=== PATIENT | female | born 1935 | race Caucasian/White ===

== ENCOUNTER 2016-08-06 11:19 | Observation (INO) | payer MEDICARE ==
--- NOTE | 2016-08-06 11:38 | C.PDOC ---
History Of Present Illness 81 y/o female presents to the ED s/p fall. Pt was at home, tripped and fell and hit the back of her head causing laceration; denies LOC. Per daughter, patient had syncopal episode earlier this morning before breakfast and "has dizzy spells on a daily basis," she has passed out several times in the past and has had "a lot of testing" for this problem. Pt now complaining of pain to back of her head. Denies neck pain, chest pain, SOB, abdominal pain, vomiting or any other complaints. Time Seen by Provider: 08/06/16 11:32 Chief Complaint (Nursing): Syncope History Per: Patient History/Exam Limitations: no limitations Onset/Duration Of Symptoms: Mins Current Symptoms Are (Timing): Still Present Fall Associated With With Symptoms: Yes, Positive Injury Severity: Moderate Recent travel outside of the [place]: No Additional History Per: Family Past Medical History Reviewed: Historical Data, Nursing Documentation, Vital Signs Vital Signs: Last Vital Signs Temp 97.1 F L 08/09/16 15:00 Pulse 86 08/09/16 15:00 Resp 20 08/09/16 15:00 BP 112/69 08/09/16 15:00 Pulse Ox 97 08/09/16 15:00 Family History: States: Unknown Family Hx Review Of Systems Except As Marked, All Systems Reviewed And Found Negative. Cardiovascular: Negative for: Chest Pain Respiratory: Negative for: Shortness of Breath Gastrointestinal: Negative for: Vomiting, Abdominal Pain Musculoskeletal: Negative for: Neck Pain Skin: Positive for: Other (laceration to posterior scalp) Physical Exam - Physical Exam Appears: Non-toxic, No Acute Distress Skin: Warm, Dry, No Rash Head: Normacephalic, Laceration (6 cm laceration to posterior scalp) Neck: Normal, Normal ROM, No Midline Cervical Tenderness, No Paracervical Tenderness, Supple Chest: Symmetrical, No Tenderness Cardiovascular: Rhythm Regular Respiratory: Normal Breath Sounds, No Rales, No Rhonchi, No Wheezing Gastrointestinal/Abdominal: Normal Exam, Soft, No Tenderness Back: Normal Inspection, No Vertebral Tenderness Pelvic: Other (nelson catheter in place) Extremity: Bilateral: Atraumatic Neurological/Psych: Normal Motor, Normal Sensation ED Course And Treatment - Laboratory Results Result Diagrams: 08/09/16 08:12 08/09/16 08:12 ECG: Interpreted By Me, Viewed By Me ECG Rhythm: Sinus Rhythm Interpretation Of ECG: right axis deviation, incomplete right bundle branch block Rate From EC O2 Sat by Pulse Oximetry: 98 (room air) Pulse Ox Interpretation: Normal Disposition - Disposition Disposition: HOSPITALIZED Disposition Time: 14:55 Condition: STABLE - Clinical Impression Clinical Impression: Scalp laceration, Syncope, Hyponatremia - Scribe Statement The provider has reviewed the documentation as recorded by the Scribe Augustin Bañuelos Provider Attestation: All medical record entries made by the Adamibe were at my direction and personally dictated by me. I have reviewed the chart and agree that the record accurately reflects my personal performance of the history, physical exam, medical decision making, and the department course for this patient. I have also personally directed, reviewed, and agree with the discharge instructions and disposition.
--- NOTE | 2016-08-06 12:33 | CT ---
PROCEDURE: CT HEAD WITHOUT CONTRAST. HISTORY: fall head injury COMPARISON: Noncontrast head CT performed 08/29/14 TECHNIQUE: Axial computed tomography images were obtained through the head/brain without intravenous contrast. Radiation dose: Total exam DLP = 930.15 mGy-cm. This CT exam was performed using one or more of the following dose reduction techniques: Automated exposure control, adjustment of the mA and/or kV according to patient size, and/or use of iterative reconstruction technique. FINDINGS: HEMORRHAGE: No intracranial hemorrhage. BRAIN: Diffuse atrophy with prominence of the ventricles and sulci noted. No mass effect or edema. Intracranial atherosclerosis. Scattered periventricular and subcortical white matter hypodensities, which are nonspecific, but often seen with chronic microvascular ischemic disease. Please note that MRI with diffusion imaging is more sensitive in the detection of acute ischemic event. VENTRICLES: No hydrocephalus. CALVARIUM: Unremarkable. PARANASAL SINUSES: Unremarkable as visualized. No significant inflammatory changes. MASTOID AIR CELLS: Unremarkable as visualized. No inflammatory changes. OTHER FINDINGS: Partial opacification bilateral external auditory canals, likely cerumen. IMPRESSION: Nonspecific white matter changes.
[2016-08-06 13:23] LABS: BASO % 0.3 % (0.0-2.0); EOS # 0.1 K/uL (0.0-0.7); HEMATOCRIT 34.7 % (34.0-47.0); LYMPH # 1.1 K/uL (1.0-4.3); LYMPH % 8.3 % (20.0-40.0); MEAN CELL VOLUME 82.5 fL (81.0-99.0); MEAN CORPUSCULAR HGB CONC 32.8 g/dL (33.0-37.0); MEAN PLATELET VOLUME 7.1 fL (7.2-11.7); MONO # 0.6 K/uL (0.0-0.8); MONO % 4.7 % (0.0-10.0); PLATELET COUNT 343 K/uL (130-400); RED CELL DISTRIBUTION WIDTH 14.1 % (11.5-14.5); WHITE BLOOD COUNT 13.3 K/uL (4.8-10.8)
[2016-08-06 13:33] LABS: CHLORIDE 88 mmol/L (98-107); POTASSIUM 3.7 mmol/L (3.6-5.2)
[2016-08-06 13:36] LABS: ALKALINE PHOSPHATASE 93 U/L (38-126); ALT/SGPT 22 U/L (9-52); AST/SGOT 31 U/L (14-36); BILIRUBIN,TOTAL 0.2 mg/dL (0.2-1.3); BLOOD UREA NITROGEN 12 mg/dL (7-17); CALCIUM 9.3 mg/dl (8.6-10.4); CARBON DIOXIDE 26 mmol/L (22-30); GFR AFRICAN-AMERICAN > 60; GLUCOSE,RANDOM 105 mg/dL (65-105); TOTAL PROTEIN 8.6 g/dL (6.3-8.3)
[2016-08-06 13:41] LABS: SODIUM 125 mmol/L (132-148)
[2016-08-06 13:45] LABS: EOSINOPHIL 1 % (0-4); NEUTROPHIL 80 % (50-75); TOTAL CELLS COUNTED 100
[2016-08-06] MEDS ORDERED: Sodium Chloride 0.9% 1,000 ML IV ONE (14:20)
--- NOTE | 2016-08-06 16:04 | RAD ---
HISTORY: syncope COMPARISON: 03/01/2014 FINDINGS: LUNGS: Lung volumes are low-normal. Less than before Diffuse interstitial lung disease most pronounced in the Ira thorax and in the mid to upper lobes suggested. Bronchiectasis is possible. No interval consolidation appreciated. PLEURA: No significant pleural effusion identified, no pneumothorax apparent. Minimal pleural-parenchymal thickening both apices and left lateral hemithorax possible. No significant change here appreciated CARDIOVASCULAR: Aortic knob calcification. Normal heart size OSSEOUS STRUCTURES: Thoracic spondylosis. VISUALIZED UPPER ABDOMEN: Normal. OTHER FINDINGS: None. IMPRESSION: No active disease. Chronic interstitial lung disease. Bronchiectasis with this possible
--- NOTE | 2016-08-06 19:15 | CP.PCM.HP ---
History of Present Illness - History of Present Illness History of Present Illness: Chief complaint: Patient fell in the house, and had injury to the scalp History present illness: 81-year-old female with history of hypertension, hypercholesterolemia, anxiety and diabetes brought in by the family members to the emergency room after a fall sustained in the house this morning. Patient started having some bleeding in the back of the neck and head, and also started having some headache. She did not have any nausea vomiting. But patient is somewhat anxious, and the tremor noted. She did not have any loss of consciousness. She denies any chest pain. Shortness of breath on minimal exertion noted. Cough also noted, mostly dry in nature. No fever or chills. Patient is able to walk. But the patient has a indwelling Nelson catheter for urinary tract retention. Unclear at this time. More details needed In the emergency room patient was also noted to have a low sodium level. According to the PMD Dr. Leblanc patient was having chronic low sodium count. Advised the patient to reduce the fluid intake but patient still continues to drink a significant amount of fluid water to flush the bladder. She has no swelling. Past medical history: Hypertension hypercholesterolemia anxiety diabetes Surgical history: Hysterectomy, associate with a postoperative complication, laparoscopy Allergy: No known drug allergy except to Xylocaine and iodine Personal history: Nonsmoker nonalcoholic But secondhand smoking noted Family history: Patient lives with the her . She is able to do her activities in the house. Mother had a history of asthma, father naturally . 2 sisters had a history of asthma and diabetes, had and children are ok Review of system: Patient is having no headache or visual symptom. Denies any chest pain, but the cough and dryness noted. Denies any nausea vomiting. No chest pain. Increasing amount of fluid intake noted. Indwelling Nelson catheter noted On examination: Vital signs reviewed Chest good air entry bilaterally expiratory rales and wheezing noted regular heart sound nontender abdomen extremities 1+ pedal edema WARDROBE MISTRESS alert awake oriented 3 no functional neurological deficit the patient is having posterior scalp injury, for which he dressing was given in the emergency room. Labs reviewed Low sodium level noted. BUN/creatinine is normal. Chest x-ray showing evidence of a interstitial lung disease, and the possible lung fibrosis Patient was seen by me in the past for similar lung condition Assessment and recommendation: 81-year-old female with history of hypertension diabetes hypercholesterolemia anxiety recently noted to have urinary retention, and hypernatremia admitted to the hospital following a fall. Most likely it is an fall and related to the sodium level. Secondary weakness maybe noted. Scalp injury, no loss of consciousness. Will closely monitor the patient. Sodium level monitoring. Neurological evaluation. We'll get a CT scan of the chest. Bronchial dilators. Glucose monitoring. And will follow the patien Present on Admission - Present on Admission Any Indicators Present on Admission: No History of DVT/PE: No History of Uncontrolled Diabetes: No Urinary Catheter: No Decubitus Ulcer Present: No Past Patient History - Past Medical History & Family History Past Medical History?: Yes - Past Social History Smoking Status: Never Smoked - NEUROLOGICAL Hx Dementia: Yes - ENDOCRINE/METABOLIC Other/Comment: hyponatremia - MUSCULOSKELETAL/RHEUMATOLOGICAL Hx Falls: Yes - GENITOURINARY/GYNECOLOGICAL Other/Comment: urinary retection. nelson catheter - PSYCHIATRIC Hx Substance Use: No - SURGICAL HISTORY Hx Section: Yes Other/Comment: laparoscopy - ANESTHESIA Hx Anesthesia: Yes Hx Anesthesia Reactions: No Meds Allergies/Adverse Reactions: Allergies Allergy/AdvReac Type Severity Reaction Status Date / Time iodine Allergy Verified 08/06/16 12:05 lidocaine [From Xylocaine] Allergy SWELLING Verified 08/06/16 12:05 Results - Vital Signs Recent Vital Signs: Last Vital Signs Temp 97.9 F 08/06/16 17:00 Pulse 94 H 08/06/16 17:00 Resp 18 08/06/16 17:00 BP 140/71 08/06/16 17:00 Pulse Ox 98 08/06/16 17:00 - Labs Result Diagrams: 08/06/16 13:14 08/06/16 13:14
[2016-08-06 23:52] VITALS: RESP 20
[2016-08-07 09:01] LABS: FREE T4 1.22 ng/dL (0.78-2.19)
[2016-08-07 09:15] LABS: THYROID STIMULATING HORMONE 3.7 mIU/L (0.46-4.68)
[2016-08-07 09:24] LABS: HOMOCYSTEINE 8.6 umol/L (4.7-12.6)
--- NOTE | 2016-08-07 09:26 | CON ---
DATE: 08/07/2016 ATTENDING PHYSICIAN: Xin Bhagat MD. REASON FOR CONSULTATION: Postconcussion syndrome. CHIEF COMPLAINT: The patient was admitted because of a fall at home with the patient hitting her head. From neurological point of view, I was called in to evaluate her for further management. HISTORY OF PRESENT ILLNESS: The patient is an 81-year-old, young looking female, usual state of health, presenting with abrupt onset of dizziness while getting out of the couch with the help of her . She fell on her back and injured her head. She admits to loss of consciousness for a few minutes. She regained her consciousness and back to her baseline. HISTORY OF PRESENT ILLNESS: The patient is an 81-year-old right-handed female presenting with a fall. She describes that while she was in the couch she felt dizzy. She called help from her . While he was trying to help her to get up from the couch the dizziness got worse. She fell backwards with her . She bruised her head. She admits she lost her consciousness for a minute or so and then she regained her consciousness and back to her baseline as she was before. She admits she has been falling for many years. She used a cane in the beginning for 3 years and then she used a walker for 3 years for now. She also admits a problem in inability to pass urine for many years (she does not know) and she has been using a catheter for the same. History of fall many times. Not associating with seizure activities , bowel or bladder incontinence. No history of bitten tongue. PAST MEDICAL HISTORY: Hypertension, dyslipidemia, anxiety attack and diabetes. She has been followed by a neurologist. Has never been diagnosed the problem what she has. PERSONAL HISTORY: Denies smoking or alcohol use. ALLERGIES: No known allergies. FAMILY HISTORY: She lives with her . REVIEW OF SYSTEMS: As per H and P. MEDICATIONS: Evista, Tylenol and Xanax. PHYSICAL EXAMINATION: VITAL SIGNS: Blood pressure 105/66, mean arterial pressure of 79, respiratory rate 16, temperature afebrile; pulse rate 90, irregular. NECK: Supple. No carotid bruit. HEART SOUNDS: Both systolic and diastolic murmur heard. LUNGS QUINONES: Rales heard diffusely in both lung quinones. EXTREMITIES: No edema in legs. NEUROLOGIC EXAMINATION: MENTAL STATUS: She is awake, alert, oriented to person, place, and time. Speech is clear. Naming, repetition, fluency, comprehension all within normal. CRANIAL NERVES: Visual field intact, pupil reactive to light. Extraocular movements: Lateral gaze present. Vertical gaze is absent. Both upper gaze and downward gaze. Good corneal reflex. No facial sensory deficits. Significant facial asymmetry manifesting as a flattening of the left nasolabial fold. Hearing is normal. Tongue is moist. MOTOR: On outstretched hand with eyes closed, sensory tremor noted on both sides. No asterixis. Power is symmetric on either side. DEEP TENDON REFLEXES: Biceps, brachioradialis, triceps 2+ on either side. Both knees are absent. Both ankles are absent. Plantars are upgoing on the left side; right side was downgoing. SENSORY: Responds to pain symmetrically on both sides. No cortical sensory loss. COORDINATION: Ilwbcd-wmun-gozpuv test gross dysmetria, left more than her right side, probably anxiety-induced at this time. The patient has masked face. Meyerson sign positive. Cogwheel rigidity left more than her right side. GAIT: Deferred at this time. CONCLUSION: Upon reviewing her history and neurological examination, the patient is presenting with possible striatonigral pathway dysfunction, possible supranuclear palsy (Parkinson-plus syndrome). The patient also suffering from mild sensorimotor neuropathy. The patient also showed evidence of right subcortical dysfunction, probably ischemic process versus a space occupying lesion. BLOOD WORKUP: WBC 13.3, hemoglobin 11.4, hematocrit 34.7, platelet 343. Sodium 135, potassium 3.7, chloride 88, bicarbonate 26, GFR more than 60, glucose 114, protein 8.6,. WORKUP: CT of the head reviewed no acute pathology noted. RECOMMENDATIONS: 1. MRI of the brain. 2. Carotid Doppler. 3. EEG. 4. Blood workup as per the order. 5. Sinemet starting with low dose with ProAmatine. 6. Out of bed and physical therapy. Keep her on fall precaution. 7. The patient will be followed closely with you. Shan Zuniga MD cc: [id number] TT: 08/07/2016 09:25:10 Confirmation # [id number] Dictation # [id number] [id number]
[2016-08-07 09:56] LABS: FOLATE > 20.0 ng/mL
--- NOTE | 2016-08-07 11:54 | CT ---
PROCEDURE: CT Chest without contrast HISTORY: lung fibrosis COMPARISON: None. TECHNIQUE: Contiguous axial images were obtained through the chest without intravenous contrast enhancement. Sagittal and coronal reconstructions were performed. Radiation dose (DLP): 282.42 mGy-cm. This CT exam was performed using one or more of the following dose reduction techniques: Automated exposure control, adjustment of the mA and/or kV according to patient size, and/or use of iterative reconstruction technique. FINDINGS: LUNGS: There are scattered cystic formation in the lungs associated with bronchiectasis suggestive of lung fibrosis. The cystic formation are more prominent at the left upper and lower lobe than the right. Findings could represent IUP versus lung fibrosis associated with collagen vascular disease. There is noncalcified lung nodule at the right lower lobe measures 6.3 millimeter. Linear opacities seen along the left fissure likely represent pleural thickening. There are also pleural-based nodules seen bilaterally slightly more on the left. MEDIASTINUM: The thoracic aorta is ectatic and tortuous. Mild aneurysmal changes of the ascending thoracic aorta is noted. The heart is mildly enlarged. Main pulmonary artery is mildly enlarged suggestive of underlying pulmonary hypertension. Slightly prominent precarinal and AP window lymph nodes are seen. PLEURA: No pleural fluid. No pneumothorax. BONES: No fracture. No destructive lesion. Diffuse osteopenia is seen. UPPER ABDOMEN: Large cyst seen exophytic from the left kidney. OTHER FINDINGS: None. IMPRESSION: Scattered cystic formations seen in the lungs left more than right associated with bronchiectasis suggestive of lung fibrosis. The distribution of these cystic formations/ lung fibrosis is nonspecific and the differential diagnosis includes IUP and lung fibrosis associated with collagen vascular disease. Dilated esophagus is noted. Mild cardiomegaly. Slight aneurysmal changes and ectatic ascending thoracic aorta. Mildly enlarged main pulmonary artery suggestive of underlying pulmonary hypertension. Few scattered lung nodules. If clinically warranted six-month follow-up reassessment is suggested.
--- NOTE | 2016-08-07 13:17 | MRI ---
PROCEDURE: MRI BRAIN WITHOUT CONTRAST HISTORY: rec syncope R/O masss Vs stroke COMPARISON: None. TECHNIQUE: Multiplanar, multisequence MR images of the brain were obtained without intravenous contrast enhancement. FINDINGS: HEMORRHAGE: None DWI: No evidence of an acute or early subacute infarction. BRAIN PARENCHYMA: No mass effect or edema. Extensive periventricular and subcortical white matter signal abnormality consistent with chronic microvascular ischemic disease. Mild atrophy noted as well. VENTRICLES: Unremarkable. No hydrocephalus. CRANIUM: Unremarkable. ORBITS: Grossly unremarkable. PARANASAL SINUSES/MASTOIDS: Clear VASCULAR SYSTEM: Skull base flow voids intact. OTHER FINDINGS: None. IMPRESSION: Extensive periventricular and subcortical white matter signal abnormality consistent with chronic microvascular ischemic disease. Mild atrophy noted as well.
[2016-08-07] MEDS: Sodium Chloride 0.9% 1,000 ML IV SCH (14:34)
[2016-08-07 17:12] LABS: BASO % 0.4 % (0.0-2.0); EOS # 0.8 K/uL (0.0-0.7); EOS % 6.3 % (0.0-4.0); HEMATOCRIT 33.9 % (34.0-47.0); LYMPH # 2.1 K/uL (1.0-4.3); LYMPH % 16.9 % (20.0-40.0); MEAN CELL VOLUME 82.9 fL (81.0-99.0); MEAN CORPUSCULAR HEMOGLOBIN 27.4 pg (27.0-31.0); MEAN PLATELET VOLUME 7.2 fL (7.2-11.7); MONO % 7.9 % (0.0-10.0); RED CELL DISTRIBUTION WIDTH 14.2 % (11.5-14.5); WHITE BLOOD COUNT 12.2 K/uL (4.8-10.8)
[2016-08-07 17:29] LABS: CHLORIDE 93 mmol/L (98-107); POTASSIUM 3.6 mmol/L (3.6-5.2); SODIUM 130 mmol/L (132-148)
[2016-08-07 17:32] LABS: BLOOD UREA NITROGEN 10 mg/dL (7-17); CARBON DIOXIDE 26 mmol/L (22-30); GFR AFRICAN-AMERICAN > 60; GLUCOSE,RANDOM 115 mg/dL (65-105)
[2016-08-07 17:33] LABS: CALCIUM 8.6 mg/dl (8.6-10.4)
--- NOTE | 2016-08-07 21:28 | CP.PCM.PN ---
Subjective - Date & Time of Evaluation Date of Evaluation: 08/07/16 Time of Evaluation: 21:28 - Subjective Subjective: Patient slightly feeling better. Less weakness. No nausea vomiting. Poorly eating, weakness noted Objective - Vital Signs/Intake and Output Vital Signs (last 24 hours): Temp Pulse Resp BP Pulse Ox 98.2 F 106 H 20 158/89 H 96 08/07/16 15:00 08/07/16 15:00 08/07/16 15:00 08/07/16 15:00 08/07/16 15:00 Intake and Output: Vital signs reviewed Chest good air entry, expiratory rales and wheezing noted regular heart sound nontender abdomen. Patient was seen by neurologist. MRI and CAT scan is pending. - Medications Medications: Current Medications Acetaminophen (Tylenol 325mg Tab) 650 mg PO Q6 PRN PRN Reason: Pain, moderate (4-7) Last Admin: 08/06/16 21:33 Dose: 650 mg Alprazolam (Xanax) 0.25 mg PO BID [facility] Stop: 08/14/16 10:01 Last Admin: 08/07/16 17:41 Dose: 0.25 mg Carbidopa/Levodopa (Sinemet 10/100) 1 tab PO TID [facility] Last Admin: 08/07/16 17:41 Dose: 1 tab Heparin Sodium (Porcine) (Heparin) 5,000 units SC Q12 [facility] Last Admin: 08/07/16 21:23 Dose: 5,000 units Sodium Chloride (Sodium Chloride 0.9%) 1,000 mls @ 70 mls/hr IV .[id number] [facility] Last Admin: 08/07/16 14:34 Dose: 70 mls/hr Midodrine (Proamatine) 2.5 mg PO BID [facility] Last Admin: 08/07/16 17:41 Dose: 2.5 mg Raloxifene HCl (Evista) 60 mg PO DAILY [facility] Last Admin: 08/07/16 11:00 Dose: 60 mg - Labs Labs: 08/07/16 17:03 08/07/16 17:03 Assessment and Plan - Assessment and Plan (Free Text) Assessment: Patient with hyponatremia, weakness. Scalp wound. Fall. Hyponatremia. Parkinson disease and the lung fibrosis. Currently being monitored closely. Neurology follow-up. Imaging studies. We will follow the patient
[2016-08-07 22:19] LABS: RBC URINE 6 /hpf (0-3); URINE BACTERIA FEW (<OCC); URINE BILIRUBIN NEGATIVE (NEGATIVE); URINE BLOOD 1+ (NEGATIVE); URINE COLOR Yellow (YELLOW); URINE GLUCOSE (UA) 1+ mg/dL (Normal); URINE KETONE NEGATIVE (NEGATIVE); URINE LEUKOCYTE ESTERASE 3+ Leu/uL (Negative); URINE PROTEIN NEGATIVE (NEGATIVE); URINE UROBILINOGEN NORMAL mg/dL (0.2-1.0); WBC URINE 44 /hpf (0-5)
[2016-08-08] MEDS: Sodium Chloride 0.9% 1,000 ML IV SCH ×2 (06:05→17:33)
[2016-08-09 08:33] LABS: BASO % 0.5 % (0.0-2.0); EOS # 0.4 K/uL (0.0-0.7); EOS % 4.5 % (0.0-4.0); HEMATOCRIT 35.5 % (34.0-47.0); LYMPH # 1.7 K/uL (1.0-4.3); LYMPH % 21.1 % (20.0-40.0); MEAN CORPUSCULAR HEMOGLOBIN 28.1 pg (27.0-31.0); MEAN CORPUSCULAR HGB CONC 33.2 g/dL (33.0-37.0); MEAN PLATELET VOLUME 7.4 fL (7.2-11.7); MONO # 0.9 K/uL (0.0-0.8); MONO % 10.7 % (0.0-10.0); RED CELL DISTRIBUTION WIDTH 14.1 % (11.5-14.5); WHITE BLOOD COUNT 8.2 K/uL (4.8-10.8)
[2016-08-09 08:37] LABS: MEAN CELL VOLUME 84.9 fL (81.0-99.0)
[2016-08-09 08:40] LABS: CHLORIDE 92 mmol/L (98-107); POTASSIUM 3.1 mmol/L (3.6-5.2); SODIUM 131 mmol/L (132-148)
[2016-08-09 08:43] LABS: CARBON DIOXIDE 26 mmol/L (22-30); GFR AFRICAN-AMERICAN > 60
[2016-08-09 08:44] LABS: BLOOD UREA NITROGEN 19 mg/dL (7-17); GLUCOSE,RANDOM 116 mg/dL (65-105)
--- NOTE | 2016-08-09 09:24 | VASCLAB ---
PROCEDURE: HISTORY: stenosis COMPARISON: None available. TECHNIQUE: Grayscale and duplex Doppler evaluation of the cervical carotid and vertebral arteries were performed. The common carotid, carotid bifurcations and cervical Internal Carotid Artery (ICA) and proximal External Carotid Artery (ECA) were evaluated. The vertebral arteries were evaluated for gross patency and flow direction. Report prepared by Norbert Armstrong, BS, RVT FINDINGS: RIGHT CAROTID ARTERIES: 1. Common Carotid Artery: No significant focal plaque formation of the right common carotid artery. Maximum Peak Systolic velocity: 65 cm/sec: End-diastolic velocity 13 cm/sec. 2. Carotid Bifurcation: Mild heterogeneous plaque formation. Maximum Peak Systolic velocity: 56 cm/sec: End-diastolic velocity 8 cm/sec. 3. Internal Carotid Artery: Mild heterogeneous plaque in the proximal segment. Tortuous course. 3.1. Proximal Segment: Peak systolic velocity 43 cm/sec: End-diastolic velocity 11 cm/sec - % stenosis 0-15% 3.2. Middle Segment: Peak systolic velocity 99 cm/sec: End-diastolic velocity 18 cm/sec - % stenosis 0-15% 3.3. Distal Segment: Peak systolic velocity 123 cm/sec: End-diastolic velocity 26 cm/sec - % stenosis 0-15% 4. External Carotid Artery: Punctate calcific plaque formation. Peak systolic velocity 68 cm/sec 5. ICA/CCA Ratio: 1.9 LEFT CAROTID ARTERIES: 1. Common Carotid Artery: No significant focal plaque formation of the left common carotid artery. Maximum Peak Systolic velocity: 75 cm/sec: End-diastolic velocity 14 cm/sec. 2. Carotid Bifurcation: Mild heterogeneous plaque formation. Maximum Peak Systolic velocity: 73 cm/sec: End-diastolic velocity 17 cm/sec. 3. Internal Carotid Artery: Mild homogeneous plaque noted. 3.1. Proximal Segment: Peak systolic velocity 102 cm/sec: End-diastolic velocity 28 cm/sec - % stenosis 0-15% 3.2. Middle Segment: Peak systolic velocity 112 cm/sec: End-diastolic velocity 27 cm/sec - % stenosis 0-15% 3.3. Distal Segment: Peak systolic velocity 119 cm/sec: End-diastolic velocity 26 cm/sec - % stenosis 0-15% 4. External Carotid Artery: Mild heterogeneous plaque formation. Peak systolic velocity 78 cm/sec 5. ICA/CCA Ratio: 1.6 VERTEBRAL ARTERIES: 1. Right Vertebral Artery: The right vertebral artery flow direction is antegrade. 2. Left Vertebral Artery: The left vertebral artery flow direction is antegrade. OTHER FINDINGS: 1. Right Brachial Blood pressure: 140 mmHg. 2. Left Brachial Blood pressure: 140 mmHg. 3. Heterogeneous thyroid gland. IMPRESSION: RIGHT: Duplex scan does not suggest hemodynamically significant stenosis of the right extracranial carotid arteries. LEFT: Duplex scan does not suggest hemodynamically significant stenosis of the left extracranial carotid arteries. Heterogeneous thyroid gland. Dedicated ultrasound recommended.
--- NOTE | 2016-08-09 10:09 | EEG ---
DATE: 08/07/2016 This is a resting electroencephalogram of awake and drowsy adult. During the study, photic stimulati on was performed, hyperventilation was not performed. The resting electroencephalogram consists of low amplitude 20-30 microvolt diffuse 5-7 Hz theta activ ities noted at parietal and occipital leads. Intermittent movement as well as muscle artifact contam inated the background rhythm. There is high amplitude 2-3 Hz delta activity seen intermittently, whi ch is consistent with early drowsiness. The photic stimulation did not evoke driving response noted at 2-20 Hz. IMPRESSION: This is abnormal electroencephalogram because of persistent slowing throughout the recor d, suggestive of bilateral cerebral dysfunction. This is probably secondary to metabolic, vascular o r degenerative process. Please correlate the finding with the neurological and the radiological stud ies. Shan Zuniga MD cc: [id number] TT: 08/09/2016 10:09:08 Confirmation # [id number] Dictation # [id number]
[2016-08-09] MEDS ORDERED: Sodium Chloride 0.9% 1,000 ML IV ONE (12:18)
[2016-08-09] MEDS ORDERED: Sodium Chloride 0.9% 1,000 ML IV SCH (12:30)
[2016-08-09] MEDS ORDERED: Potassium Chloride 20 mEq/15 ml LIQ UD PO ONE (12:30)
[2016-08-09 14:29] LABS: RBC URINE 16 /hpf (0-3); URINE BACTERIA MANY (<OCC); URINE BILIRUBIN NEGATIVE (NEGATIVE); URINE BLOOD 1+ (NEGATIVE); URINE GLUCOSE (UA) NORMAL (Normal); URINE KETONE NEGATIVE (NEGATIVE); URINE LEUKOCYTE ESTERASE 3+ Leu/uL (Negative); URINE PROTEIN 2+ mg/dL (NEGATIVE); URINE UROBILINOGEN NORMAL mg/dL (0.2-1.0); WBC CLUMPS MANY /hpf; WBC URINE 805 /hpf (0-5)
[2016-08-09 14:36] LABS: URINE COLOR YELLOW (YELLOW)
--- NOTE | 2016-08-09 16:04 | CP.PCM.PN ---
Subjective - Date & Time of Evaluation Date of Evaluation: 08/08/16 Time of Evaluation: 17:20 - Subjective Subjective: Patient currently feeling slightly better, still having weakness, complaining of pain over the left side of the chest region. No chest pain. Denies any nausea vomiting. Eating okay, weakness still noted. Tiredness present Objective - Vital Signs/Intake and Output Vital Signs (last 24 hours): Temp Pulse Resp BP Pulse Ox 98.6 F 91 H 20 74/46 L 95 08/09/16 12:25 08/09/16 12:25 08/09/16 12:25 08/09/16 12:27 08/09/16 12:25 Intake and Output: 08/09/16 08/09/16 06:59 18:59 Intake Total 250 540 Output Total 100 Balance 250 440 Chest good air entry, rales noted regular heart sound nontender abdomen no pedal edema I spoke to the neurologist. Patient started on medication for Parkinson disease, Midodrin started for hypotension. Patient is currently blood pressure is elevated. Is on hold Midodrin. Radiological investigation is so far negative. Hyponatremia stable - Medications Medications: Current Medications Acetaminophen (Tylenol 325mg Tab) 650 mg PO Q6 PRN PRN Reason: Pain, moderate (4-7) Last Admin: 08/09/16 10:01 Dose: 650 mg Alprazolam (Xanax) 0.25 mg PO BID [facility] Stop: 08/14/16 10:01 Last Admin: 08/09/16 10:01 Dose: 0.25 mg Carbidopa/Levodopa (Sinemet 10/100) 1 tab PO TID [facility] Last Admin: 08/09/16 14:00 Dose: 1 tab Heparin Sodium (Porcine) (Heparin) 5,000 units SC Q12 [facility] Last Admin: 08/09/16 10:02 Dose: 5,000 units Sodium Chloride (Sodium Chloride 0.9%) 1,000 mls @ 100 mls/hr IV .Q10H [facility] Last Admin: 08/09/16 12:34 Dose: 100 mls/hr Midodrine (Proamatine) 2.5 mg PO BID [facility] Last Admin: 08/09/16 12:33 Dose: 2.5 mg Raloxifene HCl (Evista) 60 mg PO DAILY [facility] Last Admin: 08/09/16 10:01 Dose: 60 mg - Labs Labs: 08/09/16 08:12 08/09/16 08:12 Assessment and Plan - Assessment and Plan (Free Text) Assessment: Patient with hyponatremia. Improving. Weakness and fall. Lung fibrosis. Parkinson disease. Orthostatic hypotension. Closely monitor
--- NOTE | 2016-08-09 16:16 | CP.PCM.DIS ---
Provider - Provider Date of Admission: 08/07/16 16:09 Attending physician: Xin Bhagat MD Time Spent in preparation of Discharge (in minutes): 45 Hospital Course - Lab Results Lab Results: Micro Results 08/07/16 Unknown Urine,Clean Catch Urine Culture - Preliminary Gram Negative Chava Most Recent Lab Values WBC 8.2 K/uL (4.8-10.8) 08/09/16 08:12 RBC 4.18 Mil/uL (3.80-5.20) 08/09/16 08:12 Hgb 11.8 g/dL (11.0-16.0) 08/09/16 08:12 Hct 35.5 % (34.0-47.0) 08/09/16 08:12 MCV 84.9 fL (81.0-99.0) D 08/09/16 08:12 MCH 28.1 pg (27.0-31.0) 08/09/16 08:12 MCHC 33.2 g/dL (33.0-37.0) 08/09/16 08:12 RDW 14.1 % (11.5-14.5) 08/09/16 08:12 Plt Count 313 K/uL (130-400) 08/09/16 08:12 MPV 7.4 fL (7.2-11.7) 08/09/16 08:12 Neut % (Auto) 63.2 % (50.0-75.0) 08/09/16 08:12 Lymph % (Auto) 21.1 % (20.0-40.0) 08/09/16 08:12 [place] % (Auto) 10.7 % (0.0-10.0) H 08/09/16 08:12 Eos % (Auto) 4.5 % (0.0-4.0) H 08/09/16 08:12 Baso % (Auto) 0.5 % (0.0-2.0) 08/09/16 08:12 Neut # 5.2 K/uL (1.8-7.0) 08/09/16 08:12 Lymph # 1.7 K/uL (1.0-4.3) 08/09/16 08:12 [place] # 0.9 K/uL (0.0-0.8) H 08/09/16 08:12 Eos # 0.4 K/uL (0.0-0.7) 08/09/16 08:12 Baso # 0.0 K/uL (0.0-0.2) 08/09/16 08:12 Neutrophils % (Manual) 80 % (50-75) H 08/06/16 13:14 Band Neutrophils % 1 % (0-2) 08/06/16 13:14 Lymphocytes % (Manual) 10 % (20-40) L 08/06/16 13:14 Monocytes % (Manual) 8 % (0-10) 08/06/16 13:14 Eosinophils % (Manual) 1 % (0-4) 08/06/16 13:14 Platelet Estimate Normal (NORMAL) 08/06/16 13:14 Hypochromasia (manual) Slight 08/06/16 13:14 Poikilocytosis (manual Slight 08/06/16 13:14 Anisocytosis (manual) Slight 08/06/16 13:14 Sodium 131 mmol/L (132-148) L 08/09/16 08:12 Potassium 3.1 mmol/L (3.6-5.2) L 08/09/16 08:12 Chloride 92 mmol/L (98-107) L 08/09/16 08:12 Carbon Dioxide 26 mmol/L (22-30) 08/09/16 08:12 Anion Gap 16 (10-20) 08/09/16 08:12 BUN 19 mg/dL (7-17) H 08/09/16 08:12 Creatinine 0.8 MG/DL (0.7-1.2) 08/09/16 08:12 Est GFR ( Amer) > 60 08/09/16 08:12 Est GFR (Non-Af Amer) > 60 08/09/16 08:12 POC Glucose (mg/dL) 120 mg/dL (65-110) H 08/09/16 11:25 Random Glucose 116 mg/dL (65-105) H 08/09/16 08:12 Hemoglobin A1c 5.8 % (4.2-6.5) 08/07/16 08:11 Calcium 9.0 mg/dl (8.6-10.4) 08/09/16 08:12 Total Bilirubin 0.2 mg/dL (0.2-1.3) 08/06/16 13:14 AST 31 U/L (14-36) 08/06/16 13:14 ALT 22 U/L (9-52) 08/06/16 13:14 Alkaline Phosphatase 93 U/L (38-126) 08/06/16 13:14 Total Protein 8.6 g/dL (6.3-8.3) H 08/06/16 13:14 Albumin 4.4 g/dL (3.5-5.0) 08/06/16 13:14 Globulin 4.2 gm/dL (2.2-3.9) H 08/06/16 13:14 Albumin/Globulin Ratio 1.0 (1.0-2.1) 08/06/16 13:14 Ceruloplasmin 34 mg/dL (18-53) 08/07/16 08:13 Vitamin B12 > 1000 pg/mL (239-931) H 08/07/16 08:11 Folate > 20.0 ng/mL 08/07/16 08:11 Homocysteine 8.6 umol/L (4.7-12.6) 08/07/16 08:11 Free T4 1.22 ng/dL (0.78-2.19) 08/07/16 08:11 TSH 3rd Generation 3.70 mIU/L (0.46-4.68) 08/07/16 08:11 Prolactin 18.6 ng/mL (3.0-18.9) 08/07/16 08:11 Urine Color Yellow (YELLOW) 08/09/16 14:15 Urine Clarity Turbid (Clear) 08/09/16 14:15 Urine pH 6.0 (5.0-8.0) 08/09/16 14:15 Ur Specific [place] 1.014 (1.003-1.030) 08/09/16 14:15 Urine Protein 2+ mg/dL (NEGATIVE) H 08/09/16 14:15 Urine Glucose (UA) Normal mg/dL (Normal) 08/09/16 14:15 Urine Ketones Negative mg/dL (NEGATIVE) 08/09/16 14:15 Urine Blood 1+ (NEGATIVE) H 08/09/16 14:15 Urine Nitrate Negative (NEGATIVE) 08/09/16 14:15 Urine Bilirubin Negative (NEGATIVE) 08/09/16 14:15 Urine Urobilinogen Normal mg/dL (0.2-1.0) 08/09/16 14:15 Ur Leukocyte Esterase 3+ [place]/uL (Negative) H 08/09/16 14:15 Urine WBC (Auto) 805 /hpf (0-5) H 08/09/16 14:15 Urine RBC (Auto) 16 /hpf (0-3) H 08/09/16 14:15 Urine WBC Clumps (Auto) Many /hpf (NONE) H 08/09/16 14:15 Ur Squamous Epith Cells 2 /hpf (0-5) 08/09/16 14:15 Amorphous Sediment Rare /ul (<OCC) H 08/09/16 14:15 Urine Bacteria Many (<OCC) H 08/09/16 14:15 RPR Nonreactive (NONREACTIVE) 08/07/16 08:11 - Hospital Course Hospital Course: History: 81-year-old female with a history of hypertension and hypercholesteremia anxiety , diabetes and also lung fibrosis. Patient was hospitalized at [facility], one year ago patient was placed on indwelling Lozada catheter. Patient was told to drink a significant amount of free water, to reduce infection but the patient was continued to drink free water, and noted to have a low sodium level. Patient hospitalized because she was a fall. And she had a scalp injury. Patient did not have any loss of consciousness, no loss of appetite. Patient was seen by neurologist in the hospital, underwent a CAT scan of the head MRA of the head CT scan of the chest and also carotid Doppler. CAT scan of the chest showing evidence of lung fibrosis diffusely noted. MRI of the brain showing evidence of extensive subcortical and periventricular white matter disease, consistent with microvascular ischemic changes carotid Doppler is nonspecific. Patient was also seen by neurologist, who suggested that the patient may have striatonigral disease, suggestive of possibly Parkinson. She's also having evidence of orthostatic hypotension. She's currently placed on midodrine 2.5 mg twice a day. Patient is also placed on Sinemet 1 tablet 3 times a day. She will continue her home medication. Patient Lozada catheter which was indwelling catheter removed, and she is able to urinate by herself. Urinalysis showing evidence of bacterial infection with a gram-negative rods, but the identification currently pending I spoke to the patient daughter, and patient has nitrofurantoin at home. Patient will continue nitrofurantoin 100 mg twice a day for 10 days. She will follow-up with PMD, and she will needs to get repeat urine culture and analysis, serum sodium level. Meanwhile she will continue salt tablet, and irregular salt intake. Monitor the blood pressure immediately She also needs to be carefully getting up from bed, especially which causes orthostatic hypotension and fall. Explained this to the patient's family, family understand the condition. Patient is currently stable she will be discharged home today. She will follow-up as an outpatient. Final diagnosis: Fall, injury, scalp injury, secondary to orthostatic hypotension. Likely Parkinson disease. Hyponatremia secondary to water intake. Urinary tract infection. Lozada catheter. Indwelling catheter removed. Scalp injury. Lung fibrosis, oxygen saturation is normal. Orthostatic hypotension, most likely neurological origin. We will follow the patient Discharge Plan - Discharge Medications Prescriptions: Midodrine [Proamatine] 2.5 mg PO BID #60 tab Carbidopa/Levodopa 10/100 [Sinemet 10/100] 1 tab PO TID #90 tab - Follow Up Plan Condition: GOOD Disposition: HOME/ ROUTINE
[2016-08-09 16:27] VITALS: BP 112/69; PULSE 86; TEMP 97.1
--- NOTE | 2016-08-10 11:43 | CARD ---
APPROVED REPORT EKG Measurement Heart [id number] <Conclusion> Normal sinus rhythm Possible Left atrial enlargement Right superior axis deviation Incomplete right bundle branch block Right ventricular hypertrophy Prolonged QT Abnormal ECG
[2016-08-10 18:10] VITALS: O2SAT 98
== END 2016-08-09 06:15 | disposition home or self-care (01) ==
LOC: C.ER 11:19 → C.9E 14:55 → C.3T 16:44 → OBSVTOIN 08-07 16:09 → INTOOBSV 08-07 16:09 → C.3T 08-07 22:25
PROVIDERS: ADMIT Internal Medicine; ATTEND Internal Medicine
DX: E87.1 Hypo-osmolality and hyponatremia (principal); I95.1 Orthostatic hypotension; G20 Parkinson's disease; J84.10 Pulmonary fibrosis, unspecified; N39.0 Urinary tract infection, site not specified; B96.89 Other specified bacterial agents as the cause of diseases classified elsewhere; I10 Essential (primary) hypertension; E11.9 Type 2 diabetes mellitus without complications; W01.0XXA Fall on same level from slipping, tripping and stumbling without subsequent striking against object, initial encounter; F02.80 Dementia in other diseases classified elsewhere, unspecified severity, without behavioral disturbance, psychotic disturbance, mood disturbance, and anxiety; S01.01XA Laceration without foreign body of scalp, initial encounter; G62.9 Polyneuropathy, unspecified; F41.9 Anxiety disorder, unspecified; Z77.22 Contact with and (suspected) exposure to environmental tobacco smoke (acute) (chronic); Z90.710 Acquired absence of both cervix and uterus; Y92.008 Other place in unspecified non-institutional (private) residence as the place of occurrence of the external cause
CPT/HCPCS: 36415; 70450; 70551; 71010; 71250; 80048; 80053; 81001; 82390; 82607; 82746; 82948; 83036; 83090; 84146; 84439; 84443; 85025; 86592; 87086; 87181; 93005; 93880; 95812; 96361; 96372; 96374; 97116; 97162; 99285; G0378; G8978; G8979; J1644; J2060; J7040

== ENCOUNTER 2017-03-30 14:02 | Inpatient (IN) | payer MEDICARE ==
[2017-03-30] MEDS ORDERED: Piperacillin/Tazobact 3.375 gm 100 ML IVPB STA (14:44)
[2017-03-30] MEDS ORDERED: Sodium Chloride 0.9% 500 ML IV ONE ×2 (14:45→15:54)
[2017-03-30 15:07] LABS: BASO % 0.3 % (0.0-2.0); EOS # 0.2 K/uL (0.0-0.7); EOS % 2.8 % (0.0-4.0); HEMOGLOBIN 11.2 g/dL (11.0-16.0); LYMPH # 1.4 K/uL (1.0-4.3); LYMPH % 17.8 % (20.0-40.0); MEAN CORPUSCULAR HEMOGLOBIN 27.7 pg (27.0-31.0); MEAN CORPUSCULAR HGB CONC 33.8 g/dL (33.0-37.0); MEAN PLATELET VOLUME 8.6 fL (7.2-11.7); MONO # 0.5 K/uL (0.0-0.8); MONO % 6.2 % (0.0-10.0); NEUT # 5.7 K/uL (1.8-7.0); NEUT % 72.9 % (50.0-75.0); RBC 4.04 Mil/uL (3.80-5.20); RED CELL DISTRIBUTION WIDTH 13.7 % (11.5-14.5); WHITE BLOOD COUNT 7.8 K/uL (4.8-10.8)
[2017-03-30 15:14] LABS: INR 0.9; PROTHROMBIN TIME 10.2 SECONDS (9.7-12.2)
--- NOTE | 2017-03-30 15:15 | C.PDOC ---
History Of Present Illness 81 y/o female with history of Hypothyroid brought to ED for weakness and confusion worse than baseline for few days. Upon arrival patient became hypothermic and requested for patient to be DNR and DNI. lmiited hx provided as pt confused. pt awake, responds to some questions appropriately. No other complaints at this time. Time Seen by Provider: 03/30/17 14:19 Chief Complaint (Nursing): Weakness/Neurological Deficit History Per: EMS, Family Onset/Duration Of Symptoms: Days Current Symptoms Are (Timing): Still Present Past Medical History Reviewed: Historical Data, Nursing Documentation, Vital Signs Vital Signs: Last Vital Signs Temp 93.0 F L 03/30/17 16:01 Pulse 88 03/30/17 16:01 Resp 20 03/30/17 16:01 BP 123/55 L 03/30/17 16:01 Pulse Ox 98 03/30/17 16:50 - Medical History PMH: Anxiety, Dementia, HTN, Hypercholesterolemia Surgical History: No Surg Hx Family History: States: No Known Family Hx - Social History Hx Alcohol Use: No Hx Substance Use: No - Immunization History Hx Tetanus Toxoid Vaccination: Yes Hx Influenza Vaccination: Yes Hx Pneumococcal Vaccination: Yes Review Of Systems Review Of Systems: ROS cannot be obtained secondary to pt's inabilty to answer questions. (Patient is oriented but confused and unable to answer questions correctly) Physical Exam - Physical Exam Appears: Non-toxic, Confused Skin: Warm, Dry, No Rash Head: Atraumatic, Normacephalic Eye(s): bilateral: Normal Inspection Oral Mucosa: Moist Neck: Supple Cardiovascular: Rhythm Regular Respiratory: Normal Breath Sounds, No Rales, No Rhonchi, No Wheezing Gastrointestinal/Abdominal: Soft, No Tenderness, No Guarding, No Rebound Extremity: Normal ROM, Capillary Refill (<2 seconds) Neurological/Psych: Other (Oriented x1) ED Course And Treatment - Laboratory Results Result Diagrams: 03/30/17 15:02 03/30/17 15:02 ECG: Interpreted By Me, Viewed By Me ECG Rhythm: Sinus Rhythm Rate From EC (bpm) O2 Sat by Pulse Oximetry: 98 (RA) Pulse Ox Interpretation: Normal Medical Decision Making Medical Decision Making: ro sepsis, metabolic, infectious, intracranial etiology -labs imaging pending. abd soft no ttp [address] bhagat, accepts for admission for hyponatremia, uti. pt dni dnr as per request Disposition - Disposition Disposition: HOSPITALIZED Disposition Time: 17:51 Condition: GUARDED - Clinical Impression Clinical Impression: Hyponatremia, UTI (urinary tract infection), Hypothermia - Scribe Statement The provider has reviewed the documentation as recorded by the Adamibhalina Laura All medical record entries made by the Scribe were at my direction and personally dictated by me. I have reviewed the chart and agree that the record accurately reflects my personal performance of the history, physical exam, medical decision making, and the department course for this patient. I have also personally directed, reviewed, and agree with the discharge instructions and disposition. Decision To Admit - Pt Status Changed To: Hospital Disposition Of: Inpatient - Admit Certification Admit to Inpatient:: After my assessment, the patient will require hospitalization for at least two midnights. This is because of the severity of symptoms shown, intensity of services needed, and/or the medical risk in this patient being treated as an outpatient. - InPatient: Physician Admission Certification: I certify that this patient requires 2 or more midnights of care for the following reason:: ams, uti, hyponatremia, needs ivf, antbiotics - . Bed Request Type: Telemetry Admitting Physician: Xin Bhagat Patient Diagnosis: Hyponatremia, UTI (urinary tract infection), Hypothermia
[2017-03-30 15:22] LABS: ALB/GLOB RATIO 0.9 (1.0-2.1); ALBUMIN 3.9 g/dL (3.5-5.0); ALT/SGPT 50 U/L (9-52); AST/SGOT 48 U/L (14-36); BLOOD UREA NITROGEN 19 mg/dL (7-17); CALCIUM 8.5 mg/dl (8.6-10.4); GFR AFRICAN-AMERICAN > 60; GFR NON-AFRICAN AMERICAN > 60
[2017-03-30 15:24] LABS: VENOUS BLOOD GAS BASE EXCESS 4.6 mmol/L (0.0-2.0); VENOUS BLOOD GAS PCO2 56 mmHg (40-60); VENOUS BLOOD GAS PO2 39 mm/Hg (30-55); VENOUS BLOOD PH 7.36 (7.32-7.43)
[2017-03-30] MEDS ORDERED: Piperacillin/Tazobact 3.375 gm 100 ML IVPB ONE (15:54)
[2017-03-30] MEDS ORDERED: Vancomycin 1 gm/NS 200 ml 1 GM/200 ML BAG IVPB ONE (16:00)
--- NOTE | 2017-03-30 16:24 | RAD ---
PROCEDURE: CHEST RADIOGRAPH, 1 VIEW HISTORY: chest pain COMPARISON: 08/06/[address] chest 08/07/2016 an a 03/01/2014 chest x-ray FINDINGS: LUNGS: Since 2014 lung volumes have decreased. The abnormal diffuse interstitial lung prominence -interstitial lung disease suggested a concomitant cystic changes is renoted PLEURA: No pneumothorax or pleural fluid seen. CARDIOVASCULAR: Probable top-normal heart size OSSEOUS STRUCTURES: Thoracic spondylosis VISUALIZED UPPER ABDOMEN: Normal. OTHER FINDINGS: None. IMPRESSION: Since 2013, lung volumes have decreased persistent interstitial lung disease with concomitant cystic components noted. Idiopathic pulmonary fibrosis is compatible with this. Correlate clinically No interval consolidation, pleural effusion or gross interval pneumothorax.
[2017-03-30 16:40] LABS: OSMOLALITY,URINE 299 mosm/kg (300-1000)
[2017-03-30 16:41] LABS: URINE BACTERIA RARE (<OCC); URINE BILIRUBIN NEGATIVE (NEGATIVE); URINE BLOOD 1+ (NEGATIVE); URINE CLARITY Clear (Clear); URINE COLOR Yellow (YELLOW); URINE GLUCOSE (UA) NORMAL (Normal); URINE LEUKOCYTE ESTERASE 2+ Leu/uL (Negative); URINE PROTEIN 1+ mg/dL (NEGATIVE); URINE UROBILINOGEN NORMAL mg/dL (0.2-1.0)
[2017-03-30] MEDS ORDERED: Sodium Chloride 0.9% 1,000 ML IV SCH (17:00)
--- NOTE | 2017-03-30 17:05 | CT ---
PROCEDURE: CT HEAD WITHOUT CONTRAST. HISTORY: ams COMPARISON: Noncontrast head CT performed 08/06/16, brain MRI without contrast performed 08/07/16 TECHNIQUE: Axial computed tomography images were obtained through the head/brain without intravenous contrast. Radiation dose: Total exam DLP = 880.70 mGy-cm. This CT exam was performed using one or more of the following dose reduction techniques: Automated exposure control, adjustment of the mA and/or kV according to patient size, and/or use of iterative reconstruction technique. FINDINGS: HEMORRHAGE: No intracranial hemorrhage. BRAIN: Diffuse atrophy with prominence of the ventricles and sulci noted. No mass effect or edema. Scattered periventricular and subcortical white matter hypodensities, which are nonspecific, but often seen with chronic microvascular ischemic disease. Please note that MRI with diffusion imaging is more sensitive in the detection of acute ischemic event. VENTRICLES: No hydrocephalus. CALVARIUM: Unremarkable. PARANASAL SINUSES: Unremarkable as visualized. No significant inflammatory changes. MASTOID AIR CELLS: Unremarkable as visualized. No inflammatory changes. OTHER FINDINGS: Mild bilateral external auditory canal opacification, likely cerumen. IMPRESSION: Generalized atrophy. Moderate nonspecific white matter changes.
--- NOTE | 2017-03-30 17:47 | CP.PCM.HP ---
History of Present Illness - History of Present Illness History of Present Illness: Chief complaint: Altered mental status History of present illness: 81-year-old female with a history of interstitial lung disease, hypothyroidism, hyponatremia, anxiety brought in by a family member with not feeling well. Patient was brought in by ambulance today. Patient was having 2 weeks of not feeling well, not eating well, but 3 days her symptoms got worse. Yesterday she was able to eat. But today she was not eating well. She was not getting up. She is trying to sleep mostly. Today she was not given responding to any stability, and she was mostly sleepy and falling on one side. The patient family called the ambulance and brought to the emergency room. In the emergency room patient was noted to have very low temperature. She was not responding. Immediately patient was placed on warming blanket, and IV fluids started. Temperature was noted to be on the low side Past medical history: Hypothyroidism, anxiety, hyponatremia, interstitial lung disease Allergy: Allergic to iodine Personal history: Nonsmoker nonalcoholic Family history noncontributory Surgical history nonspecific Review of systems: Noted from the chart Patient is a marked sleepy, drowsy, responding to deep stability. Disoriented. Family of bedside Vital signs reviewed No neck vein distention noted Chest good air entry bilaterally, no wheezing or rales noted CVS regular heart sound, no murmur noted Abdomen soft, nontender. Extremities no pedal edema Patient is more sleepy, drowsy, poorly responding, hypothermia Blood pressure is on the low side. Labs repeated Nonspecific P Abnormal urinalysis Assessment and recommendation: 81-year-old female with history of interstitial lung disease hypothyroid is some hyponatremia. Now admitted with a severe low temperature. Also patient has urinary tract infection. Underlying worsening hypothyroidism, associated with the low temperature. Fluid resuscitation. Oxygen. Warming blankets. Currently patient is DNR/DNI, family does not want any acute resuscitation in case of cardiac arrest in DVT prophylaxis continue the current treatment antibiotic will follow the patient Present on Admission - Present on Admission Any Indicators Present on Admission: No History of DVT/PE: No History of Uncontrolled Diabetes: No Urinary Catheter: No Decubitus Ulcer Present: No Past Patient History - Past Medical History & Family History Past Medical History?: Yes - Past Social History Smoking Status: Never Smoked - CARDIAC Hx Hypercholesterolemia: Yes Hx Hypertension: Yes - NEUROLOGICAL Hx Dementia: Yes - ENDOCRINE/METABOLIC Hx Diabetes Mellitus Type 2: Yes Other/Comment: estrogen defeciency - MUSCULOSKELETAL/RHEUMATOLOGICAL Hx Falls: Yes - GENITOURINARY/GYNECOLOGICAL Other/Comment: urinary retection. nelson catheter - PSYCHIATRIC Hx Anxiety: Yes Hx Substance Use: No - SURGICAL HISTORY Hx Section: Yes Other/Comment: laparoscopy - ANESTHESIA Hx Anesthesia: Yes Hx Anesthesia Reactions: No Meds Allergies/Adverse Reactions: Allergies Allergy/AdvReac Type Severity Reaction Status Date / Time iodine Allergy Verified 03/30/17 14:32 lidocaine [From Xylocaine] Allergy SWELLING Verified 03/30/17 14:32 Results - Vital Signs Recent Vital Signs: Last Vital Signs Temp 93.0 F L 03/30/17 16:01 Pulse 88 03/30/17 16:01 Resp 20 03/30/17 16:01 BP 123/55 L 03/30/17 16:01 Pulse Ox 98 03/30/17 16:50 - Labs Result Diagrams: 03/31/17 06:46 03/31/17 06:46 Labs: Laboratory Results - last 24 hr 03/30/17 03/30/17 03/30/17 14:25 15:02 15:02 WBC 7.8 RBC 4.04 Hgb 11.2 Hct 33.1 L MCV 82.0 D MCH 27.7 MCHC 33.8 RDW 13.7 Plt Count 215 MPV 8.6 Neut % (Auto) 72.9 Lymph % (Auto) 17.8 L [place] % (Auto) 6.2 Eos % (Auto) 2.8 Baso % (Auto) 0.3 Neut # 5.7 Lymph # 1.4 [place] # 0.5 Eos # 0.2 Baso # 0.0 PT 10.2 INR 0.9 APTT 22 pO2 VBG pH VBG pCO2 VBG HCO3 VBG Total CO2 VBG O2 Sat (Calc) VBG Base Excess VBG Potassium Glucose Lactate Sodium Potassium Chloride Carbon Dioxide Anion Gap BUN Creatinine Est GFR ( Amer) Est GFR (Non-Af Amer) POC Glucose (mg/dL) 95 Random Glucose Serum Osmolality Calcium Total Bilirubin AST ALT Alkaline Phosphatase Troponin I Total Protein Albumin Globulin Albumin/Globulin Ratio Venous Blood Potassium Urine Color Urine Clarity Urine pH Ur Specific [place] Urine Protein Urine Glucose (UA) Urine Ketones Urine Blood Urine Nitrate Urine Bilirubin Urine Urobilinogen Ur Leukocyte Esterase Urine WBC (Auto) Urine RBC (Auto) Urine Bacteria Urine Osmolality Ur Random Sodium 03/30/17 03/30/17 03/30/17 15:02 15:18 15:34 WBC RBC Hgb Hct MCV MCH MCHC RDW Plt Count MPV Neut % (Auto) Lymph % (Auto) [place] % (Auto) Eos % (Auto) Baso % (Auto) Neut # Lymph # [place] # Eos # Baso # PT INR APTT pO2 39 VBG pH 7.36 VBG pCO2 56 VBG HCO3 27.8 VBG Total CO2 33.3 H VBG O2 Sat (Calc) 78.5 H VBG Base Excess 4.6 H VBG Potassium 3.6 Glucose 77 Lactate 1.1 Sodium 121 L 130.0 L Potassium 3.8 Chloride 86 L 95.0 L Carbon Dioxide 29 Anion Gap 10 BUN 19 H Creatinine 0.6 L Est GFR ( Amer) > 60 Est GFR (Non-Af Amer) > 60 POC Glucose (mg/dL) Random Glucose 82 Serum Osmolality Calcium 8.5 L Total Bilirubin 0.3 AST 48 H ALT 50 Alkaline Phosphatase 100 Troponin I < 0.0120 Total Protein 8.0 Albumin 3.9 Globulin 4.1 H Albumin/Globulin Ratio 0.9 L Venous Blood Potassium 3.6 Urine Color Urine Clarity Urine pH Ur Specific [place] Urine Protein Urine Glucose (UA) Urine Ketones Urine Blood Urine Nitrate Urine Bilirubin Urine Urobilinogen Ur Leukocyte Esterase Urine WBC (Auto) Urine RBC (Auto) Urine Bacteria Urine Osmolality 299 L Ur Random Sodium 67 03/30/17 03/30/17 15:51 16:36 WBC RBC Hgb Hct MCV MCH MCHC RDW Plt Count MPV Neut % (Auto) Lymph % (Auto) [place] % (Auto) Eos % (Auto) Baso % (Auto) Neut # Lymph # [place] # Eos # Baso # PT INR APTT pO2 VBG pH VBG pCO2 VBG HCO3 VBG Total CO2 VBG O2 Sat (Calc) VBG Base Excess VBG Potassium Glucose Lactate Sodium Potassium Chloride Carbon Dioxide Anion Gap BUN Creatinine Est GFR ( Amer) Est GFR (Non-Af Amer) POC Glucose (mg/dL) Random Glucose Serum Osmolality 276 Calcium Total Bilirubin AST ALT Alkaline Phosphatase Troponin I Total Protein Albumin Globulin Albumin/Globulin Ratio Venous Blood Potassium Urine Color Yellow Urine Clarity Clear Urine pH 7.0 Ur Specific [place] 1.006 Urine Protein 1+ H Urine Glucose (UA) Normal Urine Ketones Negative Urine Blood 1+ H Urine Nitrate Negative Urine Bilirubin Negative Urine Urobilinogen Normal Ur Leukocyte Esterase 2+ H Urine WBC (Auto) 28 H Urine RBC (Auto) 5 H Urine Bacteria Rare Urine Osmolality Ur Random Sodium
[2017-03-30] MEDS ORDERED: Sodium Chloride 0.9% 250 ML IV ONE (18:52)
[2017-03-30] MEDS: Sodium Chloride 0.9% 1,000 ML IV SCH (19:07)
[2017-03-30] MEDS ORDERED: DOPamine 400mg/250ml D5W 400 MG/250 ML BAG IV PRN (19:53)
[2017-03-30] MEDS ORDERED: Levothyroxine 200 mcg (0.2 mg) Inj IVP ONE (20:15)
[2017-03-30] MEDS ORDERED: MethylPREDNISolone 40 mg Vial ONE (20:25)
[2017-03-30] MEDS: MethylPREDNISolone 40 mg Vial IVP SCH ×2 (20:25→22:36)
[2017-03-30] MEDS ORDERED: Piperacill/Tazo 2.25gm in Dex 2.25 GM/50 ML BAG IVPB SCH (22:00)
--- NOTE | 2017-03-30 22:07 | CP.PCM.CON ---
History of Present Illness - History of Present Illness History of Present Illness: 81 y/o female with intestitial lung disease, hypothyroidism,anxity, hyponatremia brought in by family for worsening weakness and confusion x 2 days In ER pt was hypothermic , hypotensive and requested for patient to be DNR and DNI. lmiited hx from family, pt awake, responds to some questions . No other complaints at this time. 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 nelson catheter - PSYCHIATRIC Hx Anxiety: Yes Hx Substance Use: No - SURGICAL HISTORY Hx Section: Yes Other/Comment: laparoscopy - ANESTHESIA Hx Anesthesia: Yes Hx Anesthesia Reactions: No Meds Allergies/Adverse Reactions: Allergies Allergy/AdvReac Type Severity Reaction Status Date / Time iodine Allergy Verified 03/30/17 14:32 lidocaine [From Xylocaine] Allergy SWELLING Verified 03/30/17 14:32 - Medications Medications: Current Medications Sodium Chloride (Sodium Chloride 0.9%) 1,000 mls @ 100 mls/hr IV .Q10H [facility] Last Admin: 03/30/17 19:07 Dose: 100 mls/hr Norepinephrine Bitartrate 4 mg (/ Sodium Chloride) 254 mls @ 7.62 mls/hr IV .Q24H PRN; 2 MCG/MIN PRN Reason: TITRATE PER MD ORDER Last Admin: 03/30/17 20:18 Dose: 7.62 mls/hr Piperacillin Sod/Tazobactam Sod (Zosyn 2.25 Gm Iv Premix) 2.25 gm in 50 mls @ 100 mls/hr IVPB Q8 [facility] Levothyroxine Sodium (Synthroid) 25 mcg PO DAILY@0630 [facility] Methylprednisolone (Solu-Medrol) 40 mg IVP Q12 [facility] Stop: 04/02/17 20:01 Last Admin: 03/30/17 20:25 Dose: 40 mg Pantoprazole Sodium (Protonix Inj) 40 mg IVP DAILY MEÑO Raloxifene HCl (Evista) 60 mg PO DAILY MEÑO Physical Exam - Constitutional Appears: Chronically Ill Additional comments: face flushed - Head Exam Head Exam: ATRAUMATIC, NORMAL INSPECTION, NORMOCEPHALIC - Eye Exam Eye Exam: EOMI, Normal appearance, PERRL - ENT Exam ENT Exam: Mucous Membranes Dry - Neck Exam Neck exam: Positive for: Normal Inspection - Respiratory Exam Respiratory Exam: Decreased Breath Sounds, Clear to Auscultation Bilateral - Cardiovascular Exam Cardiovascular Exam: REGULAR RHYTHM. absent: JVD - GI/Abdominal Exam GI & Abdominal Exam: Normal Bowel Sounds, Soft. absent: Tenderness - Neurological Exam Neurological exam: Alert - Skin Skin Exam: Dry, Normal Color, Warm Results - Vital Signs Recent Vital Signs: Last Vital Signs Temp 97.2 F L 03/30/17 20:45 Pulse 85 03/30/17 20:26 Resp 22 03/30/17 20:26 BP 126/65 03/30/17 20:26 Pulse Ox 99 03/30/17 20:26 - Labs Result Diagrams: 03/30/17 15:02 03/30/17 15:02 Labs: Laboratory Results - last 24 hr 03/30/17 03/30/17 03/30/17 14:25 15:02 15:02 WBC 7.8 RBC 4.04 Hgb 11.2 Hct 33.1 L MCV 82.0 D MCH 27.7 MCHC 33.8 RDW 13.7 Plt Count 215 MPV 8.6 Neut % (Auto) 72.9 Lymph % (Auto) 17.8 L [place] % (Auto) 6.2 Eos % (Auto) 2.8 Baso % (Auto) 0.3 Neut # 5.7 Lymph # 1.4 Pratt # 0.5 Eos # 0.2 Baso # 0.0 PT 10.2 INR 0.9 APTT 22 pO2 VBG pH VBG pCO2 VBG HCO3 VBG Total CO2 VBG O2 Sat (Calc) VBG Base Excess VBG Potassium Glucose Lactate Sodium Potassium Chloride Carbon Dioxide Anion Gap BUN Creatinine Est GFR ( Amer) Est GFR (Non-Af Amer) POC Glucose (mg/dL) 95 Random Glucose Serum Osmolality Calcium Total Bilirubin AST ALT Alkaline Phosphatase Troponin I Total Protein Albumin Globulin Albumin/Globulin Ratio TSH 3rd Generation Venous Blood Potassium Urine Color Urine Clarity Urine pH Ur Specific [place] Urine Protein Urine Glucose (UA) Urine Ketones Urine Blood Urine Nitrate Urine Bilirubin Urine Urobilinogen Ur Leukocyte Esterase Urine WBC (Auto) Urine RBC (Auto) Urine Bacteria Urine Osmolality Ur Random Sodium 03/30/17 03/30/17 03/30/17 15:02 15:18 15:34 WBC RBC Hgb Hct MCV MCH MCHC RDW Plt Count MPV Neut % (Auto) Lymph % (Auto) [place] % (Auto) Eos % (Auto) Baso % (Auto) Neut # Lymph # [place] # Eos # Baso # PT INR APTT pO2 39 VBG pH 7.36 VBG pCO2 56 VBG HCO3 27.8 VBG Total CO2 33.3 H VBG O2 Sat (Calc) 78.5 H VBG Base Excess 4.6 H VBG Potassium 3.6 Glucose 77 Lactate 1.1 Sodium 121 L 130.0 L Potassium 3.8 Chloride 86 L 95.0 L Carbon Dioxide 29 Anion Gap 10 BUN 19 H Creatinine 0.6 L Est GFR ( Amer) > 60 Est GFR (Non-Af Amer) > 60 POC Glucose (mg/dL) Random Glucose 82 Serum Osmolality Calcium 8.5 L Total Bilirubin 0.3 AST 48 H ALT 50 Alkaline Phosphatase 100 Troponin I < 0.0120 Total Protein 8.0 Albumin 3.9 Globulin 4.1 H Albumin/Globulin Ratio 0.9 L TSH 3rd Generation Venous Blood Potassium 3.6 Urine Color Urine Clarity Urine pH Ur Specific [place] Urine Protein Urine Glucose (UA) Urine Ketones Urine Blood Urine Nitrate Urine Bilirubin Urine Urobilinogen Ur Leukocyte Esterase Urine WBC (Auto) Urine RBC (Auto) Urine Bacteria Urine Osmolality 299 L Ur Random Sodium 67 03/30/17 03/30/17 03/30/17 15:51 16:36 19:00 WBC RBC Hgb Hct MCV MCH MCHC RDW Plt Count MPV Neut % (Auto) Lymph % (Auto) [place] % (Auto) Eos % (Auto) Baso % (Auto) Neut # Lymph # [place] # Eos # Baso # PT INR APTT pO2 VBG pH VBG pCO2 VBG HCO3 VBG Total CO2 VBG O2 Sat (Calc) VBG Base Excess VBG Potassium Glucose Lactate Sodium Potassium Chloride Carbon Dioxide Anion Gap BUN Creatinine Est GFR ( Amer) Est GFR (Non-Af Amer) POC Glucose (mg/dL) Random Glucose Serum Osmolality 276 Calcium Total Bilirubin AST ALT Alkaline Phosphatase Troponin I Total Protein Albumin Globulin Albumin/Globulin Ratio TSH 3rd Generation 14.50 H Venous Blood Potassium Urine Color Yellow Urine Clarity Clear Urine pH 7.0 Ur Specific [place] 1.006 Urine Protein 1+ H Urine Glucose (UA) Normal Urine Ketones Negative Urine Blood 1+ H Urine Nitrate Negative Urine Bilirubin Negative Urine Urobilinogen Normal Ur Leukocyte Esterase 2+ H Urine WBC (Auto) 28 H Urine RBC (Auto) 5 H Urine Bacteria Rare Urine Osmolality Ur Random Sodium - EKG Data EKG Interpreted by: Myself - Imaging and Cardiology CT scan - head Status: Image reviewed by me, Report reviewed by me Chest x-ray Status: Image reviewed by me, Report reviewed by me Assessment & Plan - Assessment and Plan (Free Text) Assessment: 1.UTI/ Urosepsis.Was hypotensive in ER started on pressors and fluids.BP maintained without pressors in ICU. Urine and blood C/s, antibiotics 2.Intestitial lung disease started on steroids DNR/DNI as per family 3.Hyponatremia- f/u lytes 4.Hypothyroidism on synthroid since february.Previous TSH unknown cont meds
[2017-03-31] MEDS: Piperacill/Tazo 2.25gm in Dex 2.25 GM/50 ML BAG IVPB SCH ×3 (00:53→16:15)
[2017-03-31] MEDS: Sodium Chloride 0.9% 1,000 ML IV SCH ×2 (02:06→03:48)
[2017-03-31] MEDS ORDERED: Levothyroxine 25 MCG TAB PO SCH (06:30)
[2017-03-31 06:50] LABS: BASO % 0.3 % (0.0-2.0); EOS % 0.1 % (0.0-4.0); LYMPH # 1.1 K/uL (1.0-4.3); LYMPH % 23.9 % (20.0-40.0); MEAN CELL VOLUME 82.2 fL (81.0-99.0); MEAN CORPUSCULAR HEMOGLOBIN 27.9 pg (27.0-31.0); MEAN CORPUSCULAR HGB CONC 33.9 g/dL (33.0-37.0); MEAN PLATELET VOLUME 8.7 fL (7.2-11.7); MONO # 0.1 K/uL (0.0-0.8); MONO % 2.1 % (0.0-10.0); NEUT # 3.5 K/uL (1.8-7.0); NEUT % 73.6 % (50.0-75.0); NRBC % 0.1 % (0.0-2.0); RBC 3.94 Mil/uL (3.80-5.20); RED CELL DISTRIBUTION WIDTH 14.1 % (11.5-14.5); WHITE BLOOD COUNT 4.8 K/uL (4.8-10.8)
[2017-03-31 07:09] LABS: ALB/GLOB RATIO 0.9 (1.0-2.1); ALBUMIN 3.8 g/dL (3.5-5.0); ALT/SGPT 46 U/L (9-52); AST/SGOT 56 U/L (14-36); BLOOD UREA NITROGEN 14 mg/dL (7-17); CALCIUM 8.4 mg/dl (8.6-10.4); GFR AFRICAN-AMERICAN > 60; GFR NON-AFRICAN AMERICAN > 60
--- NOTE | 2017-03-31 08:33 | CP.CCUPN ---
<Elisabet Resendiz - Last Filed: 03/31/17 15:42> CCU Subjective - Physician Review Subjective (Free Text): 03/31/17 08:[address] Sanchez Patient seen and examined at bedside. Patient is drowsy. Patient was started on pressors in ED and maintained without pressors in ICU. Patient did not wake up to when name was called. Patient is currently being treated with steroids for interstitial lung disease. CCU Objective - Vital Signs / Intake & Output Intake and Output (Last 8hrs): Intake & Output 03/30/17 03/31/17 03/31/17 22:59 06:59 14:59 Intake Total 100 700 100 Output Total 1200 Balance 100 -500 100 Weight 124 lb 4.8 oz Intake: Intake, IV Amount 100 700 100 right wrist 100 700 100 Oral 0 0 0 Output: Urine 1200 Urine, Voided 1200 Other: Voiding Method Incontinent # Bowel Movements 0 0 0 - Medications Active Medications: Active Medications Generic Name Dose Route Start Last Admin Trade Name Freq PRN Reason Stop Dose Admin Enoxaparin Sodium 30 mg 03/31/17 10:00 Lovenox SC DAILY MEÑO Sodium Chloride 1,000 mls @ 100 mls/hr 03/30/17 17:45 03/31/17 03:48 Sodium Chloride 0.9% IV Not Given .Q10H MEÑO Piperacillin Sod/Tazobactam Sod 2.25 gm in 50 mls @ 100 mls/hr 03/31/17 00:30 03/31/17 00:53 Zosyn 2.25 Gm Iv Premix IVPB 100 mls/hr Q8H MEÑO Administration Norepinephrine Bitartrate 4 mg 254 mls @ 7.62 mls/hr 03/31/17 01:00 / Sodium Chloride IV .Q24H PRN TITRATE PER MD ORDER Protocol 2 MCG/MIN Levothyroxine Sodium 25 mcg 03/31/17 06:30 03/31/17 07:30 Synthroid PO Not Given DAILY@0630 MEÑO Methylprednisolone 40 mg 03/31/17 10:00 Solu-Medrol IVP Q12 MEÑO Pantoprazole Sodium 40 mg 03/31/17 10:00 Protonix Inj IVP DAILY MEÑO Raloxifene HCl 60 mg 03/31/17 10:00 Evista PO DAILY MEÑO - Patient Studies Lab Studies: Lab Studies 0103/31/17 03/30/17 Range/Units 06:46 06:46 19:00 WBC 4.8 (4.8-10.8) K/uL RBC 3.94 (3.80-5.20) Mil/uL Hgb 11.0 (11.0-16.0) g/dL Hct 32.4 L (34.0-47.0) % MCV 82.2 (81.0-99.0) fL MCH 27.9 (27.0-31.0) pg MCHC 33.9 (33.0-37.0) g/dL RDW 14.1 (11.5-14.5) % Plt Count 216 (130-400) K/uL MPV 8.7 (7.2-11.7) fL Neut % (Auto) 73.6 (50.0-75.0) % Lymph % (Auto) 23.9 (20.0-40.0) % Mcdonough % (Auto) 2.1 (0.0-10.0) % Eos % (Auto) 0.1 (0.0-4.0) % Baso % (Auto) 0.3 (0.0-2.0) % Neut # 3.5 (1.8-7.0) K/uL Lymph # 1.1 (1.0-4.3) K/uL Mcdonough # 0.1 (0.0-0.8) K/uL Eos # 0.0 (0.0-0.7) K/uL Baso # 0.0 (0.0-0.2) K/uL PT (9.7-12.2) SECONDS INR APTT (21-34) SECONDS pO2 (30-55) mm/Hg VBG pH (7.32-7.43) VBG pCO2 (40-60) mmHg VBG HCO3 mmol/L VBG Total CO2 (22-28) mmol/L VBG O2 Sat (Calc) (40-65) % VBG Base Excess (0.0-2.0) mmol/L VBG Potassium (3.6-5.2) mmol/L Glucose (65-105) mg/dl Lactate (0.7-2.1) mmol/L Sodium 128 L (132-148) mmol/L Potassium 4.6 (3.6-5.2) mmol/L Chloride 96 L (98-107) mmol/L Carbon Dioxide 24 (22-30) mmol/L Anion Gap 12 (10-20) BUN 14 (7-17) mg/dL Creatinine 0.6 L (0.7-1.2) mg/dL Est GFR ( Amer) > 60 Est GFR (Non-Af Amer) > 60 POC Glucose (mg/dL) (65-110) mg/dL Random Glucose 114 H (65-105) mg/dL Serum Osmolality (272-300) mosm/kg Calcium 8.4 L (8.6-10.4) mg/dl Phosphorus 4.1 (2.5-4.5) mg/dL Magnesium 1.7 (1.6-2.3) mg/dL Total Bilirubin 0.5 (0.2-1.3) mg/dL AST 56 H (14-36) U/L ALT 46 (9-52) U/L Alkaline Phosphatase 87 (38-126) U/L Troponin I (0.00-0.120) ng/mL Total Protein 8.1 (6.3-8.3) g/dL Albumin 3.8 (3.5-5.0) g/dL Globulin 4.3 H (2.2-3.9) gm/dL Albumin/Globulin Ratio 0.9 L (1.0-2.1) TSH 3rd Generation 8.00 H 14.50 H (0.46-4.68) mIU/L Venous Blood Potassium (3.6-5.2) mmol/L Urine Color (YELLOW) Urine Clarity (Clear) Urine pH (5.0-8.0) Ur Specific Eastman (1.003-1.030) Urine Protein (NEGATIVE) mg/dL Urine Glucose (UA) (Normal) mg/dL Urine Ketones (NEGATIVE) mg/dL Urine Blood (NEGATIVE) Urine Nitrate (NEGATIVE) Urine Bilirubin (NEGATIVE) Urine Urobilinogen (0.2-1.0) mg/dL Ur Leukocyte Esterase (Negative) Carrington/uL Urine WBC (Auto) (0-5) /hpf Urine RBC (Auto) (0-3) /hpf Urine Bacteria (<OCC) Urine Osmolality (300-1000) mosm/kg Ur Random Sodium mmol/L 03/30/17 03/30/17 03/30/17 Range/Units 16:36 15:51 15:34 WBC (4.8-10.8) K/uL RBC (3.80-5.20) Mil/uL Hgb (11.0-16.0) g/dL Hct (34.0-47.0) % MCV (81.0-99.0) fL MCH (27.0-31.0) pg MCHC (33.0-37.0) g/dL RDW (11.5-14.5) % Plt Count (130-400) K/uL MPV (7.2-11.7) fL Neut % (Auto) (50.0-75.0) % Lymph % (Auto) (20.0-40.0) % Mcdonough % (Auto) (0.0-10.0) % Eos % (Auto) (0.0-4.0) % Baso % (Auto) (0.0-2.0) % Neut # (1.8-7.0) K/uL Lymph # (1.0-4.3) K/uL Mcdonough # (0.0-0.8) K/uL Eos # (0.0-0.7) K/uL Baso # (0.0-0.2) K/uL PT (9.7-12.2) SECONDS INR APTT (21-34) SECONDS pO2 (30-55) mm/Hg VBG pH (7.32-7.43) VBG pCO2 (40-60) mmHg VBG HCO3 mmol/L VBG Total CO2 (22-28) mmol/L VBG O2 Sat (Calc) (40-65) % VBG Base Excess (0.0-2.0) mmol/L VBG Potassium (3.6-5.2) mmol/L Glucose (65-105) mg/dl Lactate (0.7-2.1) mmol/L Sodium (132-148) mmol/L Potassium (3.6-5.2) mmol/L Chloride (98-107) mmol/L Carbon Dioxide (22-30) mmol/L Anion Gap (10-20) BUN (7-17) mg/dL Creatinine (0.7-1.2) mg/dL Est GFR ( Amer) Est GFR (Non-Af Amer) POC Glucose (mg/dL) (65-110) mg/dL Random Glucose (65-105) mg/dL Serum Osmolality 276 (272-300) mosm/kg Calcium (8.6-10.4) mg/dl Phosphorus (2.5-4.5) mg/dL Magnesium (1.6-2.3) mg/dL Total Bilirubin (0.2-1.3) mg/dL AST (14-36) U/L ALT (9-52) U/L Alkaline Phosphatase (38-126) U/L Troponin I (0.00-0.120) ng/mL Total Protein (6.3-8.3) g/dL Albumin (3.5-5.0) g/dL Globulin (2.2-3.9) gm/dL Albumin/Globulin Ratio (1.0-2.1) TSH 3rd Generation (0.46-4.68) mIU/L Venous Blood Potassium (3.6-5.2) mmol/L Urine Color Yellow (YELLOW) Urine Clarity Clear (Clear) Urine pH 7.0 (5.0-8.0) Ur Specific Eastman 1.006 (1.003-1.030) Urine Protein 1+ H (NEGATIVE) mg/dL Urine Glucose (UA) Normal (Normal) mg/dL Urine Ketones Negative (NEGATIVE) mg/dL Urine Blood 1+ H (NEGATIVE) Urine Nitrate Negative (NEGATIVE) Urine Bilirubin Negative (NEGATIVE) Urine Urobilinogen Normal (0.2-1.0) mg/dL Ur Leukocyte Esterase 2+ H (Negative) Carrington/uL Urine WBC (Auto) 28 H (0-5) /hpf Urine RBC (Auto) 5 H (0-3) /hpf Urine Bacteria Rare (<OCC) Urine Osmolality 299 L (300-1000) mosm/kg Ur Random Sodium 67 mmol/L 03/30/17 03/30/17 03/30/17 Range/Units 15:18 15:02 15:02 WBC (4.8-10.8) K/uL RBC (3.80-5.20) Mil/uL Hgb (11.0-16.0) g/dL Hct (34.0-47.0) % MCV (81.0-99.0) fL MCH (27.0-31.0) pg MCHC (33.0-37.0) g/dL RDW (11.5-14.5) % Plt Count (130-400) K/uL MPV (7.2-11.7) fL Neut % (Auto) (50.0-75.0) % Lymph % (Auto) (20.0-40.0) % Mcdonough % (Auto) (0.0-10.0) % Eos % (Auto) (0.0-4.0) % Baso % (Auto) (0.0-2.0) % Neut # (1.8-7.0) K/uL Lymph # (1.0-4.3) K/uL Mcdonough # (0.0-0.8) K/uL Eos # (0.0-0.7) K/uL Baso # (0.0-0.2) K/uL PT 10.2 (9.7-12.2) SECONDS INR 0.9 APTT 22 (21-34) SECONDS pO2 39 (30-55) mm/Hg VBG pH 7.36 (7.32-7.43) VBG pCO2 56 (40-60) mmHg VBG HCO3 27.8 mmol/L VBG Total CO2 33.3 H (22-28) mmol/L VBG O2 Sat (Calc) 78.5 H (40-65) % VBG Base Excess 4.6 H (0.0-2.0) mmol/L VBG Potassium 3.6 (3.6-5.2) mmol/L Glucose 77 (65-105) mg/dl Lactate 1.1 (0.7-2.1) mmol/L Sodium 130.0 L 121 L (132-148) mmol/L Potassium 3.8 (3.6-5.2) mmol/L Chloride 95.0 L 86 L (98-107) mmol/L Carbon Dioxide 29 (22-30) mmol/L Anion Gap 10 (10-20) BUN 19 H (7-17) mg/dL Creatinine 0.6 L (0.7-1.2) mg/dL Est GFR ( Amer) > 60 Est GFR (Non-Af Amer) > 60 POC Glucose (mg/dL) (65-110) mg/dL Random Glucose 82 (65-105) mg/dL Serum Osmolality (272-300) mosm/kg Calcium 8.5 L (8.6-10.4) mg/dl Phosphorus (2.5-4.5) mg/dL Magnesium (1.6-2.3) mg/dL Total Bilirubin 0.3 (0.2-1.3) mg/dL AST 48 H (14-36) U/L ALT 50 (9-52) U/L Alkaline Phosphatase 100 (38-126) U/L Troponin I < 0.0120 (0.00-0.120) ng/mL Total Protein 8.0 (6.3-8.3) g/dL Albumin 3.9 (3.5-5.0) g/dL Globulin 4.1 H (2.2-3.9) gm/dL Albumin/Globulin Ratio 0.9 L (1.0-2.1) TSH 3rd Generation (0.46-4.68) mIU/L Venous Blood Potassium 3.6 (3.6-5.2) mmol/L Urine Color (YELLOW) Urine Clarity (Clear) Urine pH (5.0-8.0) Ur Specific Eastman (1.003-1.030) Urine Protein (NEGATIVE) mg/dL Urine Glucose (UA) (Normal) mg/dL Urine Ketones (NEGATIVE) mg/dL Urine Blood (NEGATIVE) Urine Nitrate (NEGATIVE) Urine Bilirubin (NEGATIVE) Urine Urobilinogen (0.2-1.0) mg/dL Ur Leukocyte Esterase (Negative) Carrington/uL Urine WBC (Auto) (0-5) /hpf Urine RBC (Auto) (0-3) /hpf Urine Bacteria (<OCC) Urine Osmolality (300-1000) mosm/kg Ur Random Sodium mmol/L 03/30/17 03/30/17 Range/Units 15:02 14:25 WBC 7.8 (4.8-10.8) K/uL RBC 4.04 (3.80-5.20) Mil/uL Hgb 11.2 (11.0-16.0) g/dL Hct 33.1 L (34.0-47.0) % MCV 82.0 D (81.0-99.0) fL MCH 27.7 (27.0-31.0) pg MCHC 33.8 (33.0-37.0) g/dL RDW 13.7 (11.5-14.5) % Plt Count 215 (130-400) K/uL MPV 8.6 (7.2-11.7) fL Neut % (Auto) 72.9 (50.0-75.0) % Lymph % (Auto) 17.8 L (20.0-40.0) % Mcdonough % (Auto) 6.2 (0.0-10.0) % Eos % (Auto) 2.8 (0.0-4.0) % Baso % (Auto) 0.3 (0.0-2.0) % Neut # 5.7 (1.8-7.0) K/uL Lymph # 1.4 (1.0-4.3) K/uL Mcdonough # 0.5 (0.0-0.8) K/uL Eos # 0.2 (0.0-0.7) K/uL Baso # 0.0 (0.0-0.2) K/uL PT (9.7-12.2) SECONDS INR APTT (21-34) SECONDS pO2 (30-55) mm/Hg VBG pH (7.32-7.43) VBG pCO2 (40-60) mmHg VBG HCO3 mmol/L VBG Total CO2 (22-28) mmol/L VBG O2 Sat (Calc) (40-65) % VBG Base Excess (0.0-2.0) mmol/L VBG Potassium (3.6-5.2) mmol/L Glucose (65-105) mg/dl Lactate (0.7-2.1) mmol/L Sodium (132-148) mmol/L Potassium (3.6-5.2) mmol/L Chloride (98-107) mmol/L Carbon Dioxide (22-30) mmol/L Anion Gap (10-20) BUN (7-17) mg/dL Creatinine (0.7-1.2) mg/dL Est GFR ( Amer) Est GFR (Non-Af Amer) POC Glucose (mg/dL) 95 (65-110) mg/dL Random Glucose (65-105) mg/dL Serum Osmolality (272-300) mosm/kg Calcium (8.6-10.4) mg/dl Phosphorus (2.5-4.5) mg/dL Magnesium (1.6-2.3) mg/dL Total Bilirubin (0.2-1.3) mg/dL AST (14-36) U/L ALT (9-52) U/L Alkaline Phosphatase (38-126) U/L Troponin I (0.00-0.120) ng/mL Total Protein (6.3-8.3) g/dL Albumin (3.5-5.0) g/dL Globulin (2.2-3.9) gm/dL Albumin/Globulin Ratio (1.0-2.1) TSH 3rd Generation (0.46-4.68) mIU/L Venous Blood Potassium (3.6-5.2) mmol/L Urine Color (YELLOW) Urine Clarity (Clear) Urine pH (5.0-8.0) Ur Specific Eastman (1.003-1.030) Urine Protein (NEGATIVE) mg/dL Urine Glucose (UA) (Normal) mg/dL Urine Ketones (NEGATIVE) mg/dL Urine Blood (NEGATIVE) Urine Nitrate (NEGATIVE) Urine Bilirubin (NEGATIVE) Urine Urobilinogen (0.2-1.0) mg/dL Ur Leukocyte Esterase (Negative) Carrington/uL Urine WBC (Auto) (0-5) /hpf Urine RBC (Auto) (0-3) /hpf Urine Bacteria (<OCC) Urine Osmolality (300-1000) mosm/kg Ur Random Sodium mmol/L Laboratory Results - last 24 hr 03/30/17 03/30/17 03/30/17 14:25 15:02 15:02 WBC 7.8 RBC 4.04 Hgb 11.2 Hct 33.1 L MCV 82.0 D MCH 27.7 MCHC 33.8 RDW 13.7 Plt Count 215 MPV 8.6 Neut % (Auto) 72.9 Lymph % (Auto) 17.8 L Mcdonough % (Auto) 6.2 Eos % (Auto) 2.8 Baso % (Auto) 0.3 Neut # 5.7 Lymph # 1.4 Mcdonough # 0.5 Eos # 0.2 Baso # 0.0 PT 10.2 INR 0.9 APTT 22 pO2 VBG pH VBG pCO2 VBG HCO3 VBG Total CO2 VBG O2 Sat (Calc) VBG Base Excess VBG Potassium Glucose Lactate Sodium Potassium Chloride Carbon Dioxide Anion Gap BUN Creatinine Est GFR ( Amer) Est GFR (Non-Af Amer) POC Glucose (mg/dL) 95 Random Glucose Serum Osmolality Calcium Phosphorus Magnesium Total Bilirubin AST ALT Alkaline Phosphatase Troponin I Total Protein Albumin Globulin Albumin/Globulin Ratio TSH 3rd Generation Venous Blood Potassium Urine Color Urine Clarity Urine pH Ur Specific Eastman Urine Protein Urine Glucose (UA) Urine Ketones Urine Blood Urine Nitrate Urine Bilirubin Urine Urobilinogen Ur Leukocyte Esterase Urine WBC (Auto) Urine RBC (Auto) Urine Bacteria Urine Osmolality Ur Random Sodium 03/30/17 03/30/17 03/30/17 15:02 15:18 15:34 WBC RBC Hgb Hct MCV MCH MCHC RDW Plt Count MPV Neut % (Auto) Lymph % (Auto) Mcdonough % (Auto) Eos % (Auto) Baso % (Auto) Neut # Lymph # Mcdonough # Eos # Baso # PT INR APTT pO2 39 VBG pH 7.36 VBG pCO2 56 VBG HCO3 27.8 VBG Total CO2 33.3 H VBG O2 Sat (Calc) 78.5 H VBG Base Excess 4.6 H VBG Potassium 3.6 Glucose 77 Lactate 1.1 Sodium 121 L 130.0 L Potassium 3.8 Chloride 86 L 95.0 L Carbon Dioxide 29 Anion Gap 10 BUN 19 H Creatinine 0.6 L Est GFR ( Amer) > 60 Est GFR (Non-Af Amer) > 60 POC Glucose (mg/dL) Random Glucose 82 Serum Osmolality Calcium 8.5 L Phosphorus Magnesium Total Bilirubin 0.3 AST 48 H ALT 50 Alkaline Phosphatase 100 Troponin I < 0.0120 Total Protein 8.0 Albumin 3.9 Globulin 4.1 H Albumin/Globulin Ratio 0.9 L TSH 3rd Generation Venous Blood Potassium 3.6 Urine Color Urine Clarity Urine pH Ur Specific Eastman Urine Protein Urine Glucose (UA) Urine Ketones Urine Blood Urine Nitrate Urine Bilirubin Urine Urobilinogen Ur Leukocyte Esterase Urine WBC (Auto) Urine RBC (Auto) Urine Bacteria Urine Osmolality 299 L Ur Random Sodium 67 03/30/17 03/30/17 03/30/17 15:51 16:36 19:00 WBC RBC Hgb Hct MCV MCH MCHC RDW Plt Count MPV Neut % (Auto) Lymph % (Auto) Mcdonough % (Auto) Eos % (Auto) Baso % (Auto) Neut # Lymph # Mcdonough # Eos # Baso # PT INR APTT pO2 VBG pH VBG pCO2 VBG HCO3 VBG Total CO2 VBG O2 Sat (Calc) VBG Base Excess VBG Potassium Glucose Lactate Sodium Potassium Chloride Carbon Dioxide Anion Gap BUN Creatinine Est GFR ( Amer) Est GFR (Non-Af Amer) POC Glucose (mg/dL) Random Glucose Serum Osmolality 276 Calcium Phosphorus Magnesium Total Bilirubin AST ALT Alkaline Phosphatase Troponin I Total Protein Albumin Globulin Albumin/Globulin Ratio TSH 3rd Generation 14.50 H Venous Blood Potassium Urine Color Yellow Urine Clarity Clear Urine pH 7.0 Ur Specific Eastman 1.006 Urine Protein 1+ H Urine Glucose (UA) Normal Urine Ketones Negative Urine Blood 1+ H Urine Nitrate Negative Urine Bilirubin Negative Urine Urobilinogen Normal Ur Leukocyte Esterase 2+ H Urine WBC (Auto) 28 H Urine RBC (Auto) 5 H Urine Bacteria Rare Urine Osmolality Ur Random Sodium 03/31/17 03/31/17 06:46 06:46 WBC 4.8 RBC 3.94 Hgb 11.0 Hct 32.4 L MCV 82.2 MCH 27.9 MCHC 33.9 RDW 14.1 Plt Count 216 MPV 8.7 Neut % (Auto) 73.6 Lymph % (Auto) 23.9 Mcdonough % (Auto) 2.1 Eos % (Auto) 0.1 Baso % (Auto) 0.3 Neut # 3.5 Lymph # 1.1 Mcdonough # 0.1 Eos # 0.0 Baso # 0.0 PT INR APTT pO2 VBG pH VBG pCO2 VBG HCO3 VBG Total CO2 VBG O2 Sat (Calc) VBG Base Excess VBG Potassium Glucose Lactate Sodium 128 L Potassium 4.6 Chloride 96 L Carbon Dioxide 24 Anion Gap 12 BUN 14 Creatinine 0.6 L Est GFR ( Amer) > 60 Est GFR (Non-Af Amer) > 60 POC Glucose (mg/dL) Random Glucose 114 H Serum Osmolality Calcium 8.4 L Phosphorus 4.1 Magnesium 1.7 Total Bilirubin 0.5 AST 56 H ALT 46 Alkaline Phosphatase 87 Troponin I Total Protein 8.1 Albumin 3.8 Globulin 4.3 H Albumin/Globulin Ratio 0.9 L TSH 3rd Generation 8.00 H Venous Blood Potassium Urine Color Urine Clarity Urine pH Ur Specific Eastman Urine Protein Urine Glucose (UA) Urine Ketones Urine Blood Urine Nitrate Urine Bilirubin Urine Urobilinogen Ur Leukocyte Esterase Urine WBC (Auto) Urine RBC (Auto) Urine Bacteria Urine Osmolality Ur Random Sodium EKG/Cardiology Studies: Cardiology / EKG Studies 03/30/17 14:43 ELECTROCARDIOGRAM Stat Comment: Mode Of Transportation: BED Reason For Exam: chest pain Fingerstick Blood Sugar Results: 95 Critical Care Progress Note - Nutrition Nutrition: Nutrition Category Date Time Status NPO Diet [DIET] Diets 03/30/17 Breakfast Active Assessment/Plan - Assessment and Plan (Free Text) Assessment: 81F PMH Hypothyroidism, UTI with hyponatremia, UTI/Urosepsis, interstitial lung disease. Plan Neuro: - Baseline confusion - Orientated to only self. - CT head without contrast 03/30/17: DIFFUSE ATROPHY WITH PROMINENCE OF THE VENTRICLE AND SULCI. NO MASS EFFECT OR EDEMA. MODERATE WHITE MATTER CHANGES. Sedation: none Pain: denies any pain Psych: - Hx of dementia and anxiety - Currently calm and cooperative Cardio: - HR: 88 BP: 118/91 O2: 100 on RA - EKG on 03/30/17: NRS w/ 1st degree AV block, incomplete RBBB, occasional PVC - D/C levophed started in the ER Pulm: - Interstitial lung disease - CXray on 03/30/17 interstitial lung disease with decrease lung volume - Solu-Medrol 40 mg IVP Q12 MEÑO - DNI/ DNR as per family. Vent Settings: not currently on respiratory support VB03/30/17 pH: 7.36, pCO2: 56, HCO3: 27.8, pO2: 39 Endo: - Hyponatremia - 03/30/17 Na 121 - 03/31/17 Na 128 trending up - Continue IV fluid 1000ml @ 100mls/hr Q10H MEÑO - Hx of hypothyroidism - TSH 3rd gen.14.50 on 03/30/17 - TSH 3rd gen.8.00 on 03/31/17 (trending down) - Synthroid 23 mcg PO daily @ 630 MEÑO - Hx of low estrogen - Raloxifene HCl (evista) 60 mg PO daily MEÑO GI: - PT NPO, failed Swallow eval - Consider tube feed : - UTI - Urine analysis 03/30/17 positive leukocyte, WBC, RBC, proteins - Nelson catheter - Zosyn 2.25 gm in 50 mls @ 100mls/HR IVPB Q8H MEÑO Renal: no MARIELOS I/O: I: 800 ml O: 1200ml urine output from nelson Heme/Onc: Monitor CBC H/H: Hgb: 11 Hct: 32.4 WBC: 4.8 Plt count: 216 MSK: - New onset contracted as per family usually ambulatory with walker. - Hx of left LE deficit that is progressively worsening - Denies any pain ID: no acute complaint f/u AM CBC 03/31/17 H/H: Hgb: 11 Hct: 32.4 WBC: 4.8 Plt count: 216 / transfer to regular bed Prophylaxis: DVT: - lovenox 30 mg SC daily MEÑO - SCDs GI: Protonix inj 40 mg IVP daily MEÑO - Date & Time Date: 03/31/17 Time: 15:44 <Cristóbal Sanchez S - Last Filed: 03/31/17 16:31> CCU Objective - Vital Signs / Intake & Output Vital Signs (Last 4 hours): Vital Signs Temp Pulse Resp BP Pulse Ox 03/31/17 16:18 115/69 03/31/17 16:17 73 13 100 03/31/17 16:00 97.4 F L 74 16 100 03/31/17 15:40 84 14 100 03/31/17 14:50 81 15 148/95 H 100 03/31/17 14:40 83 12 100 03/31/17 14:00 93 H 21 100 03/31/17 13:50 117 H 18 100 03/31/17 13:40 97 H 21 100 03/31/17 13:32 84 15 132/78 100 03/31/17 13:30 148 H 14 93 L 03/31/17 13:20 81 14 100 03/31/17 13:10 85 16 100 03/31/17 13:00 87 17 99 03/31/17 12:50 104 H 15 100 03/31/17 12:40 150 H 19 100 03/31/17 12:32 98 H 18 125/75 100 Intake and Output (Last 8hrs): Intake & Output 03/31/17 03/31/17 03/31/17 06:59 14:59 22:59 Intake Total 700 650 100 Output Total 1200 Balance -500 650 100 Weight 124 lb 4.8 oz Intake: Intake, IV Amount 700 650 100 right wrist 700 650 100 Oral 0 0 0 Output: Urine 1200 Urine, Voided 1200 Other: # Bowel Movements 0 0 - Medications Active Medications: Active Medications Generic Name Dose Route Start Last Admin Trade Name Freq PRN Reason Stop Dose Admin Enoxaparin Sodium 30 mg 03/31/17 10:00 03/31/17 10:28 Lovenox SC 30 mg DAILY MEÑO Administration Piperacillin Sod/Tazobactam Sod 2.25 gm in 50 mls @ 100 mls/hr 03/31/17 00:30 03/31/17 16:15 Zosyn 2.25 Gm Iv Premix IVPB 100 mls/hr Q8H MEÑO Administration Norepinephrine Bitartrate 4 mg 254 mls @ 7.62 mls/hr 03/31/17 01:00 / Sodium Chloride IV .Q24H PRN TITRATE PER MD ORDER Protocol 2 MCG/MIN Dextrose/Sodium Chloride 1,000 mls @ 50 mls/hr 03/31/17 12:03 03/31/17 12:09 Dextrose 5%/0.9% Ns 1000 Ml IV 04/01/17 08:02 50 mls/hr .Q20H ONE Administration Levothyroxine Sodium 25 mcg 03/31/17 06:30 03/31/17 07:30 Synthroid PO Not Given DAILY@0630 MEÑO Methylprednisolone 40 mg 03/31/17 10:00 03/31/17 10:27 Solu-Medrol IVP 40 mg Q12 MEÑO Administration Pantoprazole Sodium 40 mg 03/31/17 10:00 03/31/17 10:27 Protonix Inj IVP 40 mg DAILY MEÑO Administration Raloxifene HCl 60 mg 03/31/17 10:00 03/31/17 12:05 Evista PO Not Given DAILY MEÑO - Patient Studies Lab Studies: Microbiology Studies 03/30/17 15:01 Urine Culture - Preliminary Urine,Catheterized Gram Negative Chava Lab Studies 03/31/17 03/31/17 03/30/17 Range/Units 06:46 06:46 19:00 WBC 4.8 (4.8-10.8) K/uL RBC 3.94 (3.80-5.20) Mil/uL Hgb 11.0 (11.0-16.0) g/dL Hct 32.4 L (34.0-47.0) % MCV 82.2 (81.0-99.0) fL MCH 27.9 (27.0-31.0) pg MCHC 33.9 (33.0-37.0) g/dL RDW 14.1 (11.5-14.5) % Plt Count 216 (130-400) K/uL MPV 8.7 (7.2-11.7) fL Neut % (Auto) 73.6 (50.0-75.0) % Lymph % (Auto) 23.9 (20.0-40.0) % Mcdonough % (Auto) 2.1 (0.0-10.0) % Eos % (Auto) 0.1 (0.0-4.0) % Baso % (Auto) 0.3 (0.0-2.0) % Neut # 3.5 (1.8-7.0) K/uL Lymph # 1.1 (1.0-4.3) K/uL Mcdonough # 0.1 (0.0-0.8) K/uL Eos # 0.0 (0.0-0.7) K/uL Baso # 0.0 (0.0-0.2) K/uL Sodium 128 L (132-148) mmol/L Potassium 4.6 (3.6-5.2) mmol/L Chloride 96 L (98-107) mmol/L Carbon Dioxide 24 (22-30) mmol/L Anion Gap 12 (10-20) BUN 14 (7-17) mg/dL Creatinine 0.6 L (0.7-1.2) mg/dL Est GFR ( Amer) > 60 Est GFR (Non-Af Amer) > 60 Random Glucose 114 H (65-105) mg/dL Serum Osmolality (272-300) mosm/kg Calcium 8.4 L (8.6-10.4) mg/dl Phosphorus 4.1 (2.5-4.5) mg/dL Magnesium 1.7 (1.6-2.3) mg/dL Total Bilirubin 0.5 (0.2-1.3) mg/dL AST 56 H (14-36) U/L ALT 46 (9-52) U/L Alkaline Phosphatase 87 (38-126) U/L Total Protein 8.1 (6.3-8.3) g/dL Albumin 3.8 (3.5-5.0) g/dL Globulin 4.3 H (2.2-3.9) gm/dL Albumin/Globulin Ratio 0.9 L (1.0-2.1) TSH 3rd Generation 8.00 H 14.50 H (0.46-4.68) mIU/L Urine Color (YELLOW) Urine Clarity (Clear) Urine pH (5.0-8.0) Ur Specific Eastman (1.003-1.030) Urine Protein (NEGATIVE) mg/dL Urine Glucose (UA) (Normal) mg/dL Urine Ketones (NEGATIVE) mg/dL Urine Blood (NEGATIVE) Urine Nitrate (NEGATIVE) Urine Bilirubin (NEGATIVE) Urine Urobilinogen (0.2-1.0) mg/dL Ur Leukocyte Esterase (Negative) Carrington/uL Urine WBC (Auto) (0-5) /hpf Urine RBC (Auto) (0-3) /hpf Urine Bacteria (<OCC) Urine Osmolality (300-1000) mosm/kg 03/30/17 03/30/17 03/30/17 Range/Units 16:36 15:51 15:34 WBC (4.8-10.8) K/uL RBC (3.80-5.20) Mil/uL Hgb (11.0-16.0) g/dL Hct (34.0-47.0) % MCV (81.0-99.0) fL MCH (27.0-31.0) pg MCHC (33.0-37.0) g/dL RDW (11.5-14.5) % Plt Count (130-400) K/uL MPV (7.2-11.7) fL Neut % (Auto) (50.0-75.0) % Lymph % (Auto) (20.0-40.0) % Mcdonough % (Auto) (0.0-10.0) % Eos % (Auto) (0.0-4.0) % Baso % (Auto) (0.0-2.0) % Neut # (1.8-7.0) K/uL Lymph # (1.0-4.3) K/uL Mcdonough # (0.0-0.8) K/uL Eos # (0.0-0.7) K/uL Baso # (0.0-0.2) K/uL Sodium (132-148) mmol/L Potassium (3.6-5.2) mmol/L Chloride (98-107) mmol/L Carbon Dioxide (22-30) mmol/L Anion Gap (10-20) BUN (7-17) mg/dL Creatinine (0.7-1.2) mg/dL Est GFR ( Amer) Est GFR (Non-Af Amer) Random Glucose (65-105) mg/dL Serum Osmolality 276 (272-300) mosm/kg Calcium (8.6-10.4) mg/dl Phosphorus (2.5-4.5) mg/dL Magnesium (1.6-2.3) mg/dL Total Bilirubin (0.2-1.3) mg/dL AST (14-36) U/L ALT (9-52) U/L Alkaline Phosphatase (38-126) U/L Total Protein (6.3-8.3) g/dL Albumin (3.5-5.0) g/dL Globulin (2.2-3.9) gm/dL Albumin/Globulin Ratio (1.0-2.1) TSH 3rd Generation (0.46-4.68) mIU/L Urine Color Yellow (YELLOW) Urine Clarity Clear (Clear) Urine pH 7.0 (5.0-8.0) Ur Specific Eastman 1.006 (1.003-1.030) Urine Protein 1+ H (NEGATIVE) mg/dL Urine Glucose (UA) Normal (Normal) mg/dL Urine Ketones Negative (NEGATIVE) mg/dL Urine Blood 1+ H (NEGATIVE) Urine Nitrate Negative (NEGATIVE) Urine Bilirubin Negative (NEGATIVE) Urine Urobilinogen Normal (0.2-1.0) mg/dL Ur Leukocyte Esterase 2+ H (Negative) Carrington/uL Urine WBC (Auto) 28 H (0-5) /hpf Urine RBC (Auto) 5 H (0-3) /hpf Urine Bacteria Rare (<OCC) Urine Osmolality 299 L (300-1000) mosm/kg Laboratory Results - last 24 hr 03/30/17 03/30/17 03/30/17 15:34 15:51 16:36 WBC RBC Hgb Hct MCV MCH MCHC RDW Plt Count MPV Neut % (Auto) Lymph % (Auto) Mcdonough % (Auto) Eos % (Auto) Baso % (Auto) Neut # Lymph # Mcdonough # Eos # Baso # Sodium Potassium Chloride Carbon Dioxide Anion Gap BUN Creatinine Est GFR ( Amer) Est GFR (Non-Af Amer) Random Glucose Serum Osmolality 276 Calcium Phosphorus Magnesium Total Bilirubin AST ALT Alkaline Phosphatase Total Protein Albumin Globulin Albumin/Globulin Ratio TSH 3rd Generation Urine Color Yellow Urine Clarity Clear Urine pH 7.0 Ur Specific Eastman 1.006 Urine Protein 1+ H Urine Glucose (UA) Normal Urine Ketones Negative Urine Blood 1+ H Urine Nitrate Negative Urine Bilirubin Negative Urine Urobilinogen Normal Ur Leukocyte Esterase 2+ H Urine WBC (Auto) 28 H Urine RBC (Auto) 5 H Urine Bacteria Rare Urine Osmolality 299 L 03/30/17 03/31/17 03/31/17 19:00 06:46 06:46 WBC 4.8 RBC 3.94 Hgb 11.0 Hct 32.4 L MCV 82.2 MCH 27.9 MCHC 33.9 RDW 14.1 Plt Count 216 MPV 8.7 Neut % (Auto) 73.6 Lymph % (Auto) 23.9 Mcdonough % (Auto) 2.1 Eos % (Auto) 0.1 Baso % (Auto) 0.3 Neut # 3.5 Lymph # 1.1 Mcdonough # 0.1 Eos # 0.0 Baso # 0.0 Sodium 128 L Potassium 4.6 Chloride 96 L Carbon Dioxide 24 Anion Gap 12 BUN 14 Creatinine 0.6 L Est GFR ( Amer) > 60 Est GFR (Non-Af Amer) > 60 Random Glucose 114 H Serum Osmolality Calcium 8.4 L Phosphorus 4.1 Magnesium 1.7 Total Bilirubin 0.5 AST 56 H ALT 46 Alkaline Phosphatase 87 Total Protein 8.1 Albumin 3.8 Globulin 4.3 H Albumin/Globulin Ratio 0.9 L TSH 3rd Generation 14.50 H 8.00 H Urine Color Urine Clarity Urine pH Ur Specific [place] Urine Protein Urine Glucose (UA) Urine Ketones Urine Blood Urine Nitrate Urine Bilirubin Urine Urobilinogen Ur Leukocyte Esterase Urine WBC (Auto) Urine RBC (Auto) Urine Bacteria Urine Osmolality Critical Care Progress Note - Nutrition Nutrition: Nutrition Category Date Time Status NPO Diet [DIET] Diets 03/30/17 Breakfast Active Attending/Attestation - Attestation I have personally seen and examined this patient.: Yes I have fully participated in the care of the patient.: Yes I have reviewed all pertinent clinical information: Yes Notes (Text): 03/31/17 16:31 patient seen and examined in the intensive care unit. Case discussed with house staff in the morning rounds. Patient stable for transfer to floor
[2017-03-31] MEDS: MethylPREDNISolone 40 mg Vial IVP SCH ×2 (10:27→21:25)
[2017-03-31] MEDS: Enoxaparin 30 mg Syringe SC SCH (10:28)
[2017-03-31] MEDS ORDERED: Dextrose 5%/0.9% NS 1,000 ML IV ONE (12:03)
--- NOTE | 2017-03-31 21:17 | CP.PCM.PN ---
Subjective - Date & Time of Evaluation Date of Evaluation: 03/31/17 Time of Evaluation: 21:16 - Subjective Subjective: Patient is more awake and alert. But confused. Vital signs stable. Patient failed swallow study. On examination: Vital signs reviewed No neck vein distention noted Chest good air entry bilaterally, no wheezing or rales noted CVS regular heart sound, no murmur noted Abdomen soft, nontender. Extremities no pedal edema Patient is alert, but confused, and disoriented Labs include a Patient TSH is elevated, worsening hypothyroidism Assessment/fragmentation: 81-year-old female with a history of interstitial lung disease, hypertension, hypercholesterolemia, osteoarthritis, admitted now to severe hypothermia, and worsening hypothyroidism. Continue the thyroid medication. IV thyrod meds Swallow evaluation physical therapy and will follow the patient Objective - Vital Signs/Intake and Output Vital Signs (last 24 hours): Temp Pulse Resp BP Pulse Ox 97.4 F L 81 15 132/84 100 03/31/17 20:00 03/31/17 20:18 03/31/17 20:18 03/31/17 20:18 03/31/17 20:18 Intake and Output: 03/31/17 04/01/17 18:59 06:59 Intake Total 850 100 Output Total 600 Balance 250 100 - Medications Medications: Current Medications Enoxaparin Sodium (Lovenox) 30 mg SC DAILY [facility] Last Admin: 03/31/17 10:28 Dose: 30 mg Piperacillin Sod/Tazobactam Sod (Zosyn 2.25 Gm Iv Premix) 2.25 gm in 50 mls @ 100 mls/hr IVPB Q8H [facility] Last Admin: 03/31/17 16:15 Dose: 100 mls/hr Dextrose/Sodium Chloride (Dextrose 5%/0.9% Ns 1000 Ml) 1,000 mls @ 50 mls/hr IV .Q20H [facility] Stop: 04/01/17 08:02 Last Admin: 03/31/17 12:09 Dose: 50 mls/hr Levothyroxine Sodium (Synthroid) 25 mcg PO DAILY@0630 [facility] Last Admin: 03/31/17 07:30 Dose: Not Given Methylprednisolone (Solu-Medrol) 40 mg IVP Q12 [facility] Last Admin: 03/31/17 10:27 Dose: 40 mg Pantoprazole Sodium (Protonix Inj) 40 mg IVP DAILY [facility] Last Admin: 03/31/17 10:27 Dose: 40 mg Raloxifene HCl (Evista) 60 mg PO DAILY [facility] Last Admin: 03/31/17 12:05 Dose: Not Given - Labs Labs: 03/31/17 06:46 03/31/17 06:46 PT 10.2 SECONDS (9.7-12.2) 03/30/17 15:02 INR 0.9 03/30/17 15:02 APTT 22 SECONDS (21-34) 03/30/17 15:02
[2017-04-01] MEDS: Piperacill/Tazo 2.25gm in Dex 2.25 GM/50 ML BAG IVPB SCH ×2 (00:06→08:30)
[2017-04-01] MEDS ORDERED: Levothyroxine 100 mcg (0.1 mg) Inj IVP SCH (08:15)
[2017-04-01] MEDS: Enoxaparin 30 mg Syringe SC SCH (09:48)
[2017-04-01] MEDS: MethylPREDNISolone 40 mg Vial IVP SCH ×2 (09:50→21:41)
[2017-04-01] MEDS ORDERED: SODIUM CHLORIDE 0.9% IVP SCH (10:00)
[2017-04-01] MEDS ORDERED: LEVOTHYROXINE IVP SCH (10:00)
[2017-04-01] MEDS ORDERED: Levothyroxine 200 mcg (0.2 mg) Inj IVP SCH (10:00)
--- NOTE | 2017-04-01 13:49 | CP.PCM.PN ---
Subjective - Date & Time of Evaluation Date of Evaluation: 04/01/17 Time of Evaluation: 13:47 - Subjective Subjective: PT ARMIDA BY DR. GUDINO. SPEECH THERAPIST EVAL AND LABS REVIEWED AND DISCUSSED. ZOSYN D/C'D AND PRIMAXIN ORDERED. LEVOTHYROXINE ALSO ADJUSTED. PUREE DIET ORDERED FOR DINNER. NO FURTHER ORDERS AT THIS TIME. Objective - Vital Signs/Intake and Output Vital Signs (last 24 hours): Temp Pulse Resp BP Pulse Ox 98.2 F 88 20 153/82 H 100 04/01/17 08:00 04/01/17 08:00 04/01/17 08:00 04/01/17 08:00 04/01/17 08:00 Intake and Output: 04/01/17 04/01/17 06:59 18:59 Intake Total 500 Output Total 100 Balance 400 - Medications Medications: Current Medications Enoxaparin Sodium (Lovenox) 30 mg SC DAILY [facility] Last Admin: 04/01/17 09:48 Dose: 30 mg Imipenem/Cilastatin Sodium 250 (mg/ Sodium Chloride) 100 mls @ 100 mls/hr IVPB Q6H [facility] Levothyroxine Sodium (Synthroid) 100 mcg PO DAILY@0630 [facility] Methylprednisolone (Solu-Medrol) 40 mg IVP Q12 [facility] Last Admin: 04/01/17 09:50 Dose: 40 mg Pantoprazole Sodium (Protonix Inj) 40 mg IVP DAILY [facility] Last Admin: 04/01/17 09:49 Dose: 40 mg Raloxifene HCl (Evista) 60 mg PO DAILY [facility] Last Admin: 04/01/17 09:49 Dose: 60 mg - Labs Labs: 03/31/17 06:46 03/31/17 06:46 PT 10.2 SECONDS (9.7-12.2) 03/30/17 15:02 INR 0.9 03/30/17 15:02 APTT 22 SECONDS (21-34) 03/30/17 15:02
[2017-04-01] MEDS: Imipenem/Cilastatin 250 MG in Sodium Chloride 100 ML IVPB SCH ×2 (14:38→20:15)
[2017-04-01] MEDS: Dextrose 5%/0.9% NS 1,000 ML IV SCH (21:41)
[2017-04-02] MEDS: Imipenem/Cilastatin 250 MG in Sodium Chloride 100 ML IVPB SCH ×4 (01:15→20:47)
[2017-04-02] MEDS: Levothyroxine 100 MCG TAB PO SCH (05:35)
--- NOTE | 2017-04-02 07:06 | CARD ---
APPROVED REPORT EKG Measurement Heart [id number] <Conclusion> Sinus rhythm with 1st degree AV block with occasional premature ventricular complexes Possible Left atrial enlargement Rightward axis Incomplete right bundle branch block Prolonged QT Abnormal ECG
[2017-04-02] MEDS: MethylPREDNISolone 40 mg Vial IVP SCH ×2 (11:15→21:18)
[2017-04-02] MEDS: Enoxaparin 30 mg Syringe SC SCH (11:16)
[2017-04-02] MEDS: Dextrose 5%/0.9% NS 1,000 ML IV SCH (17:42)
[2017-04-03] MEDS: Imipenem/Cilastatin 250 MG in Sodium Chloride 100 ML IVPB SCH ×4 (01:03→21:00)
[2017-04-03] MEDS: Levothyroxine 100 MCG TAB PO SCH (07:07)
[2017-04-03] MEDS: MethylPREDNISolone 40 mg Vial IVP SCH ×2 (10:40→21:06)
[2017-04-03] MEDS: Enoxaparin 30 mg Syringe SC SCH (10:40)
[2017-04-03] MEDS: Pantoprazole 40 mg EC Tab PO SCH (10:40)
[2017-04-03] MEDS: Dextrose 5%/0.9% NS 1,000 ML IV SCH ×2 (14:08→21:08)
[2017-04-04] MEDS: Imipenem/Cilastatin 250 MG in Sodium Chloride 100 ML IVPB SCH ×4 (01:49→19:31)
[2017-04-04] MEDS: Levothyroxine 100 MCG TAB PO SCH (05:35)
[2017-04-04] MEDS: Dextrose 5%/0.9% NS 1,000 ML IV SCH ×2 (10:35→19:31)
[2017-04-04] MEDS: Enoxaparin 30 mg Syringe SC SCH (11:21)
[2017-04-04] MEDS: MethylPREDNISolone 40 mg Vial IVP SCH (11:21)
[2017-04-04] MEDS: Pantoprazole 40 mg EC Tab PO SCH (11:21)
--- NOTE | 2017-04-04 15:52 | CP.PCM.PN ---
Subjective - Date & Time of Evaluation Date of Evaluation: 04/01/17 Time of Evaluation: 15:50 - Subjective Subjective: pt is still having weakness and lethargic no chest pain poor intake urine better faimily next to bed and I spoke vitals stable chest good airentry regular hs abd soft edema labs noted continue the current treatment will f/u Objective - Vital Signs/Intake and Output Vital Signs (last 24 hours): Temp Pulse Resp BP Pulse Ox 98 F 64 23 150/89 98 04/04/17 08:00 04/04/17 08:00 04/04/17 08:00 04/04/17 08:00 04/04/17 08:00 Intake and Output: 04/04/17 04/04/17 06:59 18:59 Intake Total 620 Balance 620 - Medications Medications: Current Medications Enoxaparin Sodium (Lovenox) 30 mg SC DAILY [facility] Last Admin: 04/04/17 11:21 Dose: 30 mg Imipenem/Cilastatin Sodium 250 (mg/ Sodium Chloride) 100 mls @ 100 mls/hr IVPB Q6H [facility] Last Admin: 04/04/17 13:24 Dose: 100 mls/hr Dextrose/Sodium Chloride (Dextrose 5%/0.9% Ns 1000 Ml) 1,000 mls @ 50 mls/hr IV .Q20H [facility] Last Admin: 04/04/17 10:35 Dose: Not Given Levothyroxine Sodium (Synthroid) 100 mcg PO DAILY@0630 [facility] Last Admin: 04/04/17 05:35 Dose: 100 mcg Methylprednisolone (Solu-Medrol) 20 mg IVP DAILY [facility] Pantoprazole Sodium (Protonix Ec Tab) 40 mg PO DAILY [facility] Last Admin: 04/04/17 11:21 Dose: 40 mg Raloxifene HCl (Evista) 60 mg PO DAILY [facility] Last Admin: 04/04/17 11:20 Dose: 60 mg - Labs Labs: 03/31/17 06:46 03/31/17 06:46 PT 10.2 SECONDS (9.7-12.2) 03/30/17 15:02 INR 0.9 03/30/17 15:02 APTT 22 SECONDS (21-34) 03/30/17 15:02
--- NOTE | 2017-04-04 15:53 | CP.PCM.PN ---
Subjective - Date & Time of Evaluation Date of Evaluation: 04/02/17 Time of Evaluation: 15:52 - Subjective Subjective: pt has elevated tsh no fever temp normal no chest pain stable vitals continue the current treatment will check the labs pt with lung fibrosis HTN hyponautremia dementia confusion esbl UTI Objective - Vital Signs/Intake and Output Vital Signs (last 24 hours): Temp Pulse Resp BP Pulse Ox 98 F 64 23 150/89 98 04/04/17 08:00 04/04/17 08:00 04/04/17 08:00 04/04/17 08:00 04/04/17 08:00 Intake and Output: 04/04/17 04/04/17 06:59 18:59 Intake Total 620 Balance 620 - Medications Medications: Current Medications Enoxaparin Sodium (Lovenox) 30 mg SC DAILY [facility] Last Admin: 04/04/17 11:21 Dose: 30 mg Imipenem/Cilastatin Sodium 250 (mg/ Sodium Chloride) 100 mls @ 100 mls/hr IVPB Q6H [facility] Last Admin: 04/04/17 13:24 Dose: 100 mls/hr Dextrose/Sodium Chloride (Dextrose 5%/0.9% Ns 1000 Ml) 1,000 mls @ 50 mls/hr IV .Q20H [facility] Last Admin: 04/04/17 10:35 Dose: Not Given Levothyroxine Sodium (Synthroid) 100 mcg PO DAILY@0630 [facility] Last Admin: 04/04/17 05:35 Dose: 100 mcg Methylprednisolone (Solu-Medrol) 20 mg IVP DAILY [facility] Pantoprazole Sodium (Protonix Ec Tab) 40 mg PO DAILY [facility] Last Admin: 04/04/17 11:21 Dose: 40 mg Raloxifene HCl (Evista) 60 mg PO DAILY [facility] Last Admin: 04/04/17 11:20 Dose: 60 mg - Labs Labs: 03/31/17 06:46 03/31/17 06:46 PT 10.2 SECONDS (9.7-12.2) 03/30/17 15:02 INR 0.9 03/30/17 15:02 APTT 22 SECONDS (21-34) 03/30/17 15:02
--- NOTE | 2017-04-04 15:55 | CP.PCM.PN ---
Subjective - Date & Time of Evaluation Date of Evaluation: 04/03/17 Time of Evaluation: 15:53 - Subjective Subjective: pt is doing well eating poorly bm not yet no fever no chest pain clinically more better chest good air entry edema noted continue ivf until she eats good PT will f/u Objective - Vital Signs/Intake and Output Vital Signs (last 24 hours): Temp Pulse Resp BP Pulse Ox 98 F 64 23 150/89 98 04/04/17 08:00 04/04/17 08:00 04/04/17 08:00 04/04/17 08:00 04/04/17 08:00 Intake and Output: 04/04/17 04/04/17 06:59 18:59 Intake Total 620 Balance 620 - Medications Medications: Current Medications Enoxaparin Sodium (Lovenox) 30 mg SC DAILY [facility] Last Admin: 04/04/17 11:21 Dose: 30 mg Imipenem/Cilastatin Sodium 250 (mg/ Sodium Chloride) 100 mls @ 100 mls/hr IVPB Q6H [facility] Last Admin: 04/04/17 13:24 Dose: 100 mls/hr Dextrose/Sodium Chloride (Dextrose 5%/0.9% Ns 1000 Ml) 1,000 mls @ 50 mls/hr IV .Q20H [facility] Last Admin: 04/04/17 10:35 Dose: Not Given Levothyroxine Sodium (Synthroid) 100 mcg PO DAILY@0630 [facility] Last Admin: 04/04/17 05:35 Dose: 100 mcg Methylprednisolone (Solu-Medrol) 20 mg IVP DAILY [facility] Pantoprazole Sodium (Protonix Ec Tab) 40 mg PO DAILY [facility] Last Admin: 04/04/17 11:21 Dose: 40 mg Raloxifene HCl (Evista) 60 mg PO DAILY [facility] Last Admin: 04/04/17 11:20 Dose: 60 mg - Labs Labs: 03/31/17 06:46 03/31/17 06:46 PT 10.2 SECONDS (9.7-12.2) 03/30/17 15:02 INR 0.9 03/30/17 15:02 APTT 22 SECONDS (21-34) 03/30/17 15:02
--- NOTE | 2017-04-04 15:57 | CP.PCM.PN ---
Subjective - Date & Time of Evaluation Date of Evaluation: 04/04/17 Time of Evaluation: 15:55 - Subjective Subjective: pt is doing well more awake family at bed side no fever no BM she ate good today but not getting up from bed bed ridden cough and mild mucous noted clinically stable will continue the current treatment will f/u on antibiotic will check labs and tsh in am for PT Objective - Vital Signs/Intake and Output Vital Signs (last 24 hours): Temp Pulse Resp BP Pulse Ox 98 F 64 23 150/89 98 04/04/17 08:00 04/04/17 08:00 04/04/17 08:00 04/04/17 08:00 04/04/17 08:00 Intake and Output: 04/04/17 04/04/17 06:59 18:59 Intake Total 620 Balance 620 - Medications Medications: Current Medications Enoxaparin Sodium (Lovenox) 30 mg SC DAILY [facility] Last Admin: 04/04/17 11:21 Dose: 30 mg Imipenem/Cilastatin Sodium 250 (mg/ Sodium Chloride) 100 mls @ 100 mls/hr IVPB Q6H [facility] Last Admin: 04/04/17 13:24 Dose: 100 mls/hr Dextrose/Sodium Chloride (Dextrose 5%/0.9% Ns 1000 Ml) 1,000 mls @ 50 mls/hr IV .Q20H [facility] Last Admin: 04/04/17 10:35 Dose: Not Given Levothyroxine Sodium (Synthroid) 100 mcg PO DAILY@0630 [facility] Last Admin: 04/04/17 05:35 Dose: 100 mcg Methylprednisolone (Solu-Medrol) 20 mg IVP DAILY [facility] Pantoprazole Sodium (Protonix Ec Tab) 40 mg PO DAILY [facility] Last Admin: 04/04/17 11:21 Dose: 40 mg Raloxifene HCl (Evista) 60 mg PO DAILY [facility] Last Admin: 04/04/17 11:20 Dose: 60 mg - Labs Labs: 03/31/17 06:46 03/31/17 06:46 PT 10.2 SECONDS (9.7-12.2) 03/30/17 15:02 INR 0.9 03/30/17 15:02 APTT 22 SECONDS (21-34) 03/30/17 15:02
[2017-04-04 17:46] VITALS: RESP 20
[2017-04-05] MEDS: Imipenem/Cilastatin 250 MG in Sodium Chloride 100 ML IVPB SCH ×4 (01:24→20:20)
[2017-04-05] MEDS: Levothyroxine 100 MCG TAB PO SCH (05:32)
[2017-04-05 08:08] LABS: EOS # 0.4 K/uL (0.0-0.7); EOS % 5.2 % (0.0-4.0); HEMOGLOBIN 11.7 g/dL (11.0-16.0); LYMPH # 3.1 K/uL (1.0-4.3); MEAN CELL VOLUME 83.3 fL (81.0-99.0); MEAN CORPUSCULAR HEMOGLOBIN 27.3 pg (27.0-31.0); MEAN CORPUSCULAR HGB CONC 32.7 g/dL (33.0-37.0); MEAN PLATELET VOLUME 8.6 fL (7.2-11.7); MONO # 0.9 K/uL (0.0-0.8); MONO % 12.5 % (0.0-10.0); NEUT % 40.3 % (50.0-75.0); NRBC % 0.1 % (0.0-2.0); RBC 4.28 Mil/uL (3.80-5.20); RED CELL DISTRIBUTION WIDTH 13.5 % (11.5-14.5)
[2017-04-05 08:11] LABS: WHITE BLOOD COUNT 7.5 K/uL (4.8-10.8)
[2017-04-05 08:38] LABS: ALB/GLOB RATIO 0.9 (1.0-2.1); ALBUMIN 3.5 g/dL (3.5-5.0); ALT/SGPT 30 U/L (9-52); AST/SGOT 25 U/L (14-36); BLOOD UREA NITROGEN 21 mg/dL (7-17); CALCIUM 8.4 mg/dl (8.6-10.4); GFR AFRICAN-AMERICAN > 60; GFR NON-AFRICAN AMERICAN > 60
[2017-04-05] MEDS: Pantoprazole 40 mg EC Tab PO SCH (09:58)
[2017-04-05] MEDS: MethylPREDNISolone 40 mg Vial IVP SCH (09:58)
[2017-04-05] MEDS: Enoxaparin 30 mg Syringe SC SCH (09:58)
[2017-04-05] MEDS ORDERED: Potassium Chloride 20 mEq ER Tab PO ONE (13:55)
[2017-04-05] MEDS ORDERED: Potassium Chloride 20 mEq/15 ml LIQ UD PO ONE (14:09)
[2017-04-06] MEDS: Dextrose 5%/0.9% NS 1,000 ML IV SCH ×2 (01:52→22:00)
[2017-04-06] MEDS: Imipenem/Cilastatin 250 MG in Sodium Chloride 100 ML IVPB SCH ×4 (01:53→20:00)
[2017-04-06] MEDS: Levothyroxine 100 MCG TAB PO SCH (06:14)
[2017-04-06] MEDS: Enoxaparin 30 mg Syringe SC SCH (09:55)
[2017-04-06] MEDS: Pantoprazole 40 mg EC Tab PO SCH (09:56)
[2017-04-06] MEDS: MethylPREDNISolone 40 mg Vial IVP SCH (09:56)
[2017-04-07] MEDS: Imipenem/Cilastatin 250 MG in Sodium Chloride 100 ML IVPB SCH ×3 (02:29→14:16)
[2017-04-07] MEDS: Levothyroxine 100 MCG TAB PO SCH (06:19)
[2017-04-07] MEDS: Enoxaparin 30 mg Syringe SC SCH (09:45)
[2017-04-07] MEDS: MethylPREDNISolone 40 mg Vial IVP SCH (09:46)
[2017-04-07] MEDS: Pantoprazole 40 mg EC Tab PO SCH (09:46)
--- NOTE | 2017-04-07 15:48 | CP.PCM.PN ---
Subjective - Date & Time of Evaluation Date of Evaluation: 04/07/17 Time of Evaluation: 15:46 - Subjective Subjective: DISCUSSED D/C WITH DR. GUDINO AND OK TO D/C TODAY TO [facility]. PT TO GO UNDER THE SERVICE OF DR. SHEPARD (HE IS AWARE OF THE PT GOING TO [facility]) UNTIL DR. Edgardo BOYCE RETURNS FROM VACATION, THEN SHE WILL BE FOLLOWED BY DR. Edgardo BOYCE. DISCUSSED WITH CM AND SW AT [facility], WELL THE [facility]ING, AND PT UNABLE TO GO TODAY SHE IS WEARING MITTENS. PER NURSE LOLI PT HAS MITTENS BECAUSE SHE WILL TAKE OUT HER HEPLOCK. MITTENS TO BE REMOVED TODAY AND PT WILL BE TRANSPORTED TO [facility] TOMORROW MORNING. IF PT REMOVES HEPLOCK, THERE IS NO NEED TO REINSERT. DR CONNOR MADE AWARE. D/C ORDER IN FOR TOMORROW MORNING. NO FURTHER ORDERS. Objective - Vital Signs/Intake and Output Vital Signs (last 24 hours): Temp Pulse Resp BP Pulse Ox 98 F 71 20 136/75 96 04/07/17 08:20 04/07/17 08:20 04/07/17 08:20 04/07/17 08:20 04/07/17 08:20 Intake and Output: 04/07/17 04/07/17 06:59 18:59 Intake Total 600 740 Balance 600 740 - Medications Medications: Current Medications Dextrose/Sodium Chloride (Dextrose 5%/0.9% Ns 1000 Ml) 1,000 mls @ 50 mls/hr IV .Q20H [facility] Last Admin: 04/06/17 22:00 Dose: 50 mls/hr Levothyroxine Sodium (Synthroid) 100 mcg PO DAILY@0630 [facility] Last Admin: 04/07/17 06:19 Dose: 100 mcg Pantoprazole Sodium (Protonix Ec Tab) 40 mg PO DAILY [facility] Last Admin: 04/07/17 09:46 Dose: 40 mg Prednisone (Prednisone Tab) 20 mg PO DAILY [facility] Raloxifene HCl (Evista) 60 mg PO DAILY [facility] Last Admin: 04/07/17 09:45 Dose: 60 mg - Labs Labs: 04/05/17 07:41 04/05/17 07:41 PT 10.2 SECONDS (9.7-12.2) 03/30/17 15:02 INR 0.9 03/30/17 15:02 APTT 22 SECONDS (21-34) 03/30/17 15:02
[2017-04-07] MEDS ORDERED: Levothyroxine 125 MCG TAB PO SCH (19:20)
--- NOTE | 2017-04-07 19:21 | CP.PCM.PN ---
Subjective - Date & Time of Evaluation Date of Evaluation: 04/07/17 Time of Evaluation: 19:20 - Subjective Subjective: pt still having some confusion but able to participate in the theraphy no chest pain no nausea no vomiting vital stable labs in a for d/c to rehab in am Objective - Vital Signs/Intake and Output Vital Signs (last 24 hours): Temp Pulse Resp BP Pulse Ox 98.7 F 88 20 115/63 100 04/07/17 16:00 04/07/17 16:00 04/07/17 16:00 04/07/17 16:00 04/07/17 16:00 Intake and Output: 04/07/17 04/08/17 18:59 06:59 Intake Total 740 Balance 740 - Medications Medications: Current Medications Levothyroxine Sodium (Synthroid) 125 mcg PO DAILY@0630 [facility] Pantoprazole Sodium (Protonix Ec Tab) 40 mg PO DAILY [facility] Last Admin: 04/07/17 09:46 Dose: 40 mg Prednisone (Prednisone Tab) 20 mg PO DAILY [facility] Raloxifene HCl (Evista) 60 mg PO DAILY [facility] Last Admin: 04/07/17 09:45 Dose: 60 mg - Labs Labs: 04/05/17 07:41 04/05/17 07:41 PT 10.2 SECONDS (9.7-12.2) 03/30/17 15:02 INR 0.9 03/30/17 15:02 APTT 22 SECONDS (21-34) 03/30/17 15:02
[2017-04-08 05:46] VITALS: PULSE 82
[2017-04-08 08:01] VITALS: BP 145/77; TEMP 97.3; O2SAT 97
[2017-04-08] MEDS: Pantoprazole 40 mg EC Tab PO SCH (09:59)
--- NOTE | 2017-04-09 08:43 | PQF SEPSIS ---
This form is a permanent part of the medical record Dr. Bhagat, Patient admitted with changed of mental status, hypotensive and UTI. . Please clarify if this patient was treated for sepsis. Clarification of your documentation is requested to better reflect the severity of illness and intensity of treatment of your patient. Indicators present [*] Temp < 96.8 or > 100.4 [] WBC count > 12,000/mm3 or <000/mm3 or 10% immature neutrophils [*] Heart Rate > 90 [] Respiratory Rate > 20 [*] Fever or hypothermia [] Chills [] Positive blood cultures [XX] Hypotension [] Metabolic acidosis (Elevated lactate level, anion gap or reduced blood pH) [XX] Acute confusion /Altered Mental Status [] Shock [] Other: [] Location in the medical record that reflects the above clinical findings: [] Treatment Provided: [patient had a severe hypothyroidism, hyponatremia,lung fibrosis] PHYSICIAN'S RESPONSE Based on your medical judgment of the clinical indicators outlined above, are you treating this patient for a known or suspected: [] Sepsis / Septicemia Please specify organism if known [] [] SIRS (Systemic Inflammatory Response Syndrome) [] Severe Sepsis (Sepsis with Associated Organ Dysfunction) [] Fever of Unknown Origin [*] Other, please indicate: [*hypothyroidism, myxedema, lung fibrosis] [] If Unable to Determine, please check the box, sign and date. Present On Admission (POA) Indicator: [] Present at the time of admission [] Not present at the time of admission [] Clinically Undetermined In responding to this query, please exercise your independent professional judgment. The fact that a question is asked does not imply that any particular answer is desired or expected. Thank you for your clarification on this documentation. If you have any questions please call:[ ] * Thank you, [ ] data input clerk DORY
--- NOTE | 2017-06-07 20:11 | PN ---
DATE: 04/05/2017 The patient was seen by me. On that day, the patient was doing well. At that time, I discussed with also the nurse practitioners in the floor. The patient is an 81-year-old female with history of interstitial lung disease, hypothyroidism, hyponatremia, anxiety; admitted to the hospital because of hypothermia, noted to have severe urinary tract infection and hypothyroidism worsening, hyponatremia. The patient was clinically doing well and improving. She was confused otherwise; clinically stable otherwise. We will continue the physical therapy. I spoke to the family waiting for placement to the rehabilitation center. Xin Bhagat MD
--- NOTE | 2017-06-07 20:17 | PN ---
DATE: 04/06/2017 The patient's temperature 98, pulse 68, blood pressure 104/61, respiration is 20, saturation is 100%. Clinically otherwise stable. The patient is able to tolerate the oral feeding. She denies any chest pain. She denies any other major active symptoms. Family at bedside. Currently waiting for rehab placement. ASSESSMENT: The patient is an 82-year-old female with interstitial lung disease, on home O2, and also having severe hypothyroidism, dementia. We will follow up the patient. Xin Bhagat MD
--- NOTE | 2017-06-07 20:18 | PN ---
DATE: 04/07/2017 SUBJECTIVE: The patient is currently waiting for transfer to rehabilitation center possibly in the morning. PHYSICAL EXAMINATION: VITAL SIGNS: Stable. Temperature 98.5, pulse 88, blood pressure 134/77, saturation 97%. Clinical examination is unremarkable, otherwise. The patient is awake and alert, confused. Family at bedside. We will continue with the current treatment and follow up with the rehabilitation center once she gets transferred. Xin Bhagat MD
--- NOTE | 2017-06-08 13:17 | DS ---
HISTORY: An 81-year-old female with a history of interstitial lung disease, hypothyroidism, hyponatremia, and she was brought to the emergency room by the family members because the patient was not feeling well at least 2 weeks prior to the hospitalization and in 2 days to 3 days, her symptoms are getting worse. The patient initially was noted to be significantly hypothermic, she was not responding even with any stimuli. Temperature was noted to be on the very low side. CLINICAL EXAMINATION: The patient was not responding to deep stimuli, moaning, just spontaneously opening the eyes, otherwise there was no response. According to the family, the patient is a DNR/DNI, but given the changes, initially the patient was needing intensive care unit management. The patient is started on IV fluid, hyperthermic blanket was applied. She was also noted to have hypothyroidism which was worsening given the possibility of myxedema and coma likely. The patient was initially admitted to the intensive care unit, closely monitored in the ICU. Symptoms started slowly improving, possibility of urinary tract infection also likely. Started on IV antibiotics, IV fluids, hyperthermia blanket, and closely monitored. Clinically, the patient became more stabilized, but the patient has baseline dementia. She was having episodes of agitation. She was eating otherwise well. The patient is mostly bedridden, on home O2. The patient is currently stable. She will be discharged to the Rehabilitation Center. The patient discharged to the rehab on 04/08/2017. Family was aware of the condition. Medications reviewed and reconciliation was done and the patient will follow up with the attending at Rehab Center. FINAL DIAGNOSES: Acute hypothermia likely secondary to myxedema, urinary tract infection, interstitial lung disease, altered mental status, delirium, and dementia. Xin Bhagat MD
== END 2017-04-08 13:12 | DRG 643 ==
LOC: C.ER 14:02 → C.9E 17:10 → C.9I 19:43 → C.3T 03-31 22:28
PROVIDERS: ADMIT Internal Medicine; ATTEND Internal Medicine
DX: E03.9 Hypothyroidism, unspecified (principal); E03.5 Myxedema coma; I95.9 Hypotension, unspecified; J84.10 Pulmonary fibrosis, unspecified; Z99.81 Dependence on supplemental oxygen; E87.1 Hypo-osmolality and hyponatremia; E11.9 Type 2 diabetes mellitus without complications; N39.0 Urinary tract infection, site not specified; F03.90 Unspecified dementia, unspecified severity, without behavioral disturbance, psychotic disturbance, mood disturbance, and anxiety; F41.9 Anxiety disorder, unspecified; Z16.12 Extended spectrum beta lactamase (ESBL) resistance; Z66 Do not resuscitate; E78.00 Pure hypercholesterolemia, unspecified; I10 Essential (primary) hypertension; R68.0 Hypothermia, not associated with low environmental temperature